=== PATIENT | female | born 1940 | race American Indian/Alaskan Native ===

== ENCOUNTER 2017-09-16 20:39 | Inpatient (IN) | payer MEDICARE ==
--- NOTE | 2017-09-16 20:46 | C.PDOC ---
History Of Present Illness Patient is a 76 y/o female brought in by ambulance for left-sided weakness. Patient was last known at baseline normal around last night. As per patient, she went to the bathroom earlier this morning and fell, and thats how she was found. On arrival, patient has left hemiplegia and eyes are deviated to the right. History taken from patient. Time Seen by Provider: 09/16/17 20:44 Chief Complaint (Nursing): Weakness/Neurological Deficit History Per: Patient History/Exam Limitations: no limitations Onset/Duration Of Symptoms: Hrs Current Symptoms Are (Timing): Still Present Severity: Moderate Pain Scale Rating Of: 0 Additional History Per: EMS Past Medical History Reviewed: Historical Data, Nursing Documentation, Vital Signs Vital Signs: Last Vital Signs Temp 99.6 F 09/16/17 20:47 Pulse 95 H 09/16/17 21:31 Resp 16 09/16/17 21:31 BP 212/121 H 09/16/17 21:31 Pulse Ox 100 09/16/17 21:40 - Medical History PMH: Arthritis, Dementia, HTN, TIA Surgical History: No Surg Hx Family History: States: No Known Family Hx Review Of Systems Eyes: Positive for: Other (eyes deviated) Neurological: Positive for: Weakness (left-sided hemiplegia) Physical Exam - Physical Exam Skin: Warm, Dry Head: Normacephalic Eye(s): bilateral: Other (Eyes deviated to the right) Oral Mucosa: Moist Neck: Trachea Midline, No Step Off Deformity, Supple Chest: Symmetrical Cardiovascular: Rhythm Regular Respiratory: No Rales, No Rhonchi, No Wheezing Gastrointestinal/Abdominal: Bowel Sounds (normal), Soft, No Tenderness, No Distention Extremity: Bilateral: Atraumatic, No Pedal Edema, Normal Color And Temperature Neurological/Psych: Oriented x3, Normal Speech, Other (left hemiplegia -- see NIHSS) ED Course And Treatment - Laboratory Results Result Diagrams: 09/16/17 20:47 09/16/17 20:47 ECG: Interpreted By Me, Viewed By Me ECG Rhythm: Sinus Rhythm (99), Nonspecific Changes O2 Sat by Pulse Oximetry: 100 Pulse Ox Interpretation: Normal - Radiology CXR: Interpreted by Me, Viewed By Me - CT Scan/US CT Head Other Rad Studies (CT/US): Read By Radiologist, Radiology Report Reviewed CT/US Interpretation: FINDINGS: Brain: Mild to moderate brain volume loss. Periventricular and subcortical hypodensities are. nonspecific and could reflect chronic microvascular ischemic changes. No hemorrhage. Ventricles: 3 cm right basal ganglia hyperdense acute intraparenchymal hemorrhage with extension. into the right lateral ventricle and occipital horn with minimal hemorrhage in the left occipital horn. No. hydrocephalus. 6 mm of leftward midline shift. Bones/joints: Unremarkable. No acute fracture. Soft tissues: Left frontal parietal soft tissue hematoma. Vasculature: Calcific atherosclerosis of the bilateral carotid siphon. Sinuses: Unremarkable as visualized. No acute sinusitis. Mastoid air cells: Unremarkable as visualized. No mastoid effusion. Orbits: Bilateral proptosis. IMPRESSION: 3 cm right basal ganglia hyperdense acute intraparenchymal hemorrhage with extension into the. right lateral ventricle and occipital horn with minimal hemorrhage in the left occipital horn. No. hydrocephalus. 6 mm of leftward midline shift. Thank you for allowing us to participate in the care of your patient. Dictated and Authenticated by: Laron Calderon MD. 09/16/2017 9:12 PM Eastern Time ([place] & [place]) Progress Note: 8:40pm Code stroke called. 8:[address] blair. awaiting ct scan. 9:00pm Received call from CT, + intracranial bleed. 9:18 placed call to nerurosurgery. Pt "stable" starting carmine [place]. 9:[address] hoover, neurosurgery,- not a surgical candidate. will repeat a ct early am and re-evaluate. 9:[address] armstrong - icu- will come and see the pt in the ed - Physician Consult Information Time Consulting Physician Contacted: 08:47 Physician Contacted: Joseph Blair Outcome Of Conversation: awaiting CT scan results and will examine the pt at bedside Critical Care Time - Critical Care Note Total Time (in mins): 40 Documented critical care: time excludes all time spent performing seperately billable procedures. NIHSS Stroke Scale - Date/Time Evaluation Performed Date Performed: 09/16/17 Time Performed: 20:40 When Was NIHSS Performed: Code Stroke - How Severe is the Stroke Level of Consciousness: 0=Alert LOC to Questions: 0=Both comments correct LOC to commands: 0=Obeys both correctly Best Gaze: 1=Partial gaze palsy Visual: 0=No visual loss Facial: 1=Minor asymmetry Motor Arm - Left: 3=No effort against gravity (falls immediately) Motor Arm - Right: 0=No drift Motor Leg - Left: 3=No effort against gravity (falls immediately) Motor Leg - Right: 0=No drift Limb Ataxia: 0=Absent Sensory: 0=Normal Best Language: 0=No aphasia Dysarthia: 1=Mild to moderate slurring Extinction & Inattention (Neglect): 0=Normal, no object Score: [address] Cheyanne Alberts Comment: accepted the pt on her service and took over the care at 9:40 PM Doctor Will See Patient In The: ED Counseled Patient/Family Regarding: Studies Performed, Diagnosis - Disposition Disposition: HOSPITALIZED Disposition Time: 20:45 Condition: CRITICAL Forms: [facility] (Danish) - Clinical Impression Clinical Impression: Intracerebral bleed, Hypertensive crisis, NSTEMI (non-ST elevated myocardial infarction) - Scribe Statement The provider has reviewed the documentation as recorded by the Scribe (Lizzie Reynaga) Provider Attestation: All medical record entries made by the Scribe were at my direction and personally dictated by me. I have reviewed the chart and agree that the record accurately reflects my personal performance of the history, physical exam, medical decision making, and the department course for this patient. I have also personally directed, reviewed, and agree with the discharge instructions and disposition. Decision To Admit - Pt Status Changed To: Hospital Disposition Of: Inpatient - Admit Certification Admit to Inpatient:: After my assessment, the patient will require hospitalization for at least two midnights. This is because of the severity of symptoms shown, intensity of services needed, and/or the medical risk in this patient being treated as an outpatient. - InPatient: Physician Admission Certification: I certify that this patient requires 2 or more midnights of care for the following reason:: After my assessment, the patient will require hospitalization for at least two midnights. This is because of the severity of symptoms shown, intensity of services needed, and/or the medical risk in this patient being treated as an outpatient. - . Bed Request Type: ICU Admitting Physician: Cheyanne Alberts Patient Diagnosis: Intracerebral bleed, Hypertensive crisis, NSTEMI (non-ST elevated myocardial infarction)
[2017-09-16 20:51] LABS: BASO # 0.1 K/uL (0.0-0.2); BASO % 0.8 % (0.0-2.0); HEMOGLOBIN 16.6 g/dL (11.0-16.0); LYMPH # 0.7 K/uL (1.0-4.3); LYMPH % 4.2 % (20.0-40.0); MEAN CELL VOLUME 82.9 fL (81.0-99.0); MEAN CORPUSCULAR HEMOGLOBIN 27.1 pg (27.0-31.0); MEAN CORPUSCULAR HGB CONC 32.7 g/dL (33.0-37.0); MONO # 0.5 K/uL (0.0-0.8); MONO % 3.3 % (0.0-10.0); NEUT # 14.6 K/uL (1.8-7.0); NEUT % 91.7 % (50.0-75.0); NRBC % 0.3 % (0.0-2.0); PLATELET COUNT 208 K/uL (130-400); RBC 6.11 Mil/uL (3.80-5.20); RED CELL DISTRIBUTION WIDTH 14.4 % (11.5-14.5); WHITE BLOOD COUNT 15.9 K/uL (4.8-10.8)
[2017-09-16] MEDS ORDERED: Iodixanol 320 MG/ML 100 ML BOTTLE IV ONE (20:52)
[2017-09-16 21:05] LABS: ALB/GLOB RATIO 1.1 (1.0-2.1); ALBUMIN 4.5 g/dL (3.5-5.0); CALCIUM 9.7 mg/dl (8.6-10.4)
[2017-09-16 21:13] LABS: PROTHROMBIN TIME 10.8 SECONDS (9.7-12.2)
[2017-09-16 21:20] LABS: TROPONIN I 0.141 ng/mL (0.00-0.120)
--- NOTE | 2017-09-16 21:24 | CT ---
EXAM: CT Cervical Spine Without Intravenous Contrast CLINICAL HISTORY: 76 years old, female; Injury or trauma; Fall; Initial encounter; Bleeding/hemorrhage TECHNIQUE: Axial computed tomography images of the cervical spine without intravenous contrast. All CT scans at this facility use one or more dose reduction techniques, viz.: automated exposure control; ma/kV adjustment per patient size (including targeted exams where dose is matched to indication; i.e. head); or iterative reconstruction technique. Coronal and sagittal reformatted images were created and reviewed. COMPARISON: No relevant prior studies available. FINDINGS: Vertebrae: No acute fracture. Straightening of cervical spine. Degenerative anterolisthesis of mid cervical spine. Facet osteoarthrosis. Discs/spinal canal/neural foramina: Fusion across C5-C6 level. Moderate to severe degenerative disc disease within mid and lower cervical spine. Mild indentation thecal sac/cord mid cervical spine. Mild indentation thecal sac/cord lower cervical spine. Mild neuroforaminal narrowing with mid and lower cervical spine. Other bones/joints: Probable bone island within maxilla. Soft tissues: Unremarkable. Vasculature: Atherosclerotic disease of aorta and branches. Sinuses: Scattered minimal to mild mucosal thickening. Dental: Periapical lucency compatible with dental disease. Lung apices: Unremarkable. IMPRESSION: 1. No fracture. 2. Incidental/non-acute findings are described above.
[2017-09-16] MEDS: niCARdipine IV 25 MG in Sodium Chloride 0.9% 240 ML IV SCH (21:54)
[2017-09-16 22:15] LABS: BANDS 1 % (0-2); LYMPHOCYTE 6 % (20-40); MONOCYTE 5 % (0-10); NEUTROPHIL 88 % (50-75); PLATELET ESTIMATE NORMAL (NORMAL); TOTAL CELLS COUNTED 100
--- NOTE | 2017-09-17 00:17 | CP.PCM.CON ---
History of Present Illness - History of Present Illness History of Present Illness: 76 F with h/o tia in past, medication details not available, was last seen fine last night, but today evening found in the bathroom floor, unable to move, as per the patient had fallen down last this morning, unknown time. In ER she was found to have right gaze, both legs wk, but moving spontaneous, flaccid left arm , normal movement on right arm, weak left face, and some slurring of speech. Patient at time of interview when asked age mentioned 39, and unable to say the name of the month. Denied any pain, was not in resp distress. HTN 240/[address] showed right basal ganglia bleeding, with surrounding edema, right posterior horn lateral ventricle bleeding, she was started on nicardipine drip. PMH as above Allergies NKDA Surgical history not known Family history not contributory Social lives in her apartment in a multifamily home, walks wit walker, 1-2 cig for last 1 yr and more prior, no h/o alcohol Meds details not available yet Review of Systems - Review of Systems All systems: reviewed and no additional remarkable complaints except (HPI) Past Patient History - Past Social History Smoking Status: Light Smoker < 10 Cigarettes Daily Chewing Tobacco Use: No Alcohol: None Drugs: Denies Home Situation {Lives}: Alone Domestic Violence: Negative - CARDIAC Hx Hypertension: Yes - PULMONARY Hx Respiratory Disorders: No - NEUROLOGICAL Hx Dementia: Yes Hx Transient Ischemic Attacks (TIA): Yes - HEENT Hx HEENT Problems: No - RENAL Hx Chronic Kidney Disease: No - ENDOCRINE/METABOLIC Hx Endocrine Disorders: No - HEMATOLOGICAL/ONCOLOGICAL Hx Blood Disorders: No - INTEGUMENTARY Hx Dermatological Problems: No - MUSCULOSKELETAL/RHEUMATOLOGICAL Hx Arthritis: Yes - GASTROINTESTINAL Hx Gastrointestinal Disorders: No - GENITOURINARY/GYNECOLOGICAL Hx Genitourinary Disorders: No - PSYCHIATRIC Hx Psychophysiologic Disorder: No Hx Substance Use: No - SURGICAL HISTORY Hx Surgeries: No - ANESTHESIA Hx Anesthesia: No Meds Allergies/Adverse Reactions: Allergies Allergy/AdvReac Type Severity Reaction Status Date / Time No Known Allergies Allergy Verified 09/16/17 20:44 - Medications Medications: Current Medications Nicardipine HCl 25 mg/ Sodium (Chloride) 250 mls @ 50 mls/hr IV .Q5H CORNEL; 5 MG/ HR PRN Reason: Protocol Last Admin: 09/16/17 21:54 Dose: 50 mls/hr Physical Exam - Additional Findings Additional findings: * HEENT [place], right lateral gaze, unable to move eyes to left past mid eye, bulging of right buccinator, flatter left NLF * Neck supple * CVS regular, no gallop or rub * PA soft * Chest Clear b/l * Ext no edema * Skin normal turgor * [employer] Right gaze, HEENT as above, left arm 1/5, right arm 4/5, b/l legs 3/5, planter up on left foot, sensation present all 4 limbs, coordination unable to check, slurring of speech, lethargy noticed, language likely affected, gag present. Results - Vital Signs Recent Vital Signs: Last Vital Signs Temp 99.6 F 09/16/17 20:47 Pulse 92 H 09/16/17 22:55 Resp 18 09/16/17 22:55 BP 178/112 H 09/16/17 22:55 Pulse Ox 100 09/16/17 22:57 - Labs Result Diagrams: 09/16/17 20:47 09/16/17 20:47 Labs: Laboratory Results - last 24 hr 09/16/17 09/16/17 09/16/17 20:42 20:47 20:47 WBC 15.9 H D RBC 6.11 H Hgb 16.6 H D Hct 50.7 H MCV 82.9 MCH 27.1 MCHC 32.7 L RDW 14.4 Plt Count 208 MPV 8.0 Neut % (Auto) 91.7 H Lymph % (Auto) 4.2 L [place] % (Auto) 3.3 Eos % (Auto) 0.0 Baso % (Auto) 0.8 Neut # (Auto) 14.6 H Lymph # (Auto) 0.7 L [place] # (Auto) 0.5 Eos # (Auto) 0.0 Baso # (Auto) 0.1 Neutrophils % (Manual) 88 H Band Neutrophils % 1 Lymphocytes % (Manual) 6 L Monocytes % (Manual) 5 Platelet Estimate Normal PT 10.8 INR 1.0 APTT 25 Sodium Potassium Chloride Carbon Dioxide Anion Gap BUN Creatinine Est GFR ( Amer) Est GFR (Non-Af Amer) POC Glucose (mg/dL) 125 H Random Glucose Hemoglobin A1c Calcium Total Bilirubin AST ALT Alkaline Phosphatase Troponin I Total Protein Albumin Globulin Albumin/Globulin Ratio Triglycerides Cholesterol LDL Cholesterol Direct HDL Cholesterol Blood Type Antibody Screen 09/16/17 09/16/17 09/16/17 20:47 20:47 20:47 WBC RBC Hgb Hct MCV MCH MCHC RDW Plt Count MPV Neut % (Auto) Lymph % (Auto) [place] % (Auto) Eos % (Auto) Baso % (Auto) Neut # (Auto) Lymph # (Auto) [place] # (Auto) Eos # (Auto) Baso # (Auto) Neutrophils % (Manual) Band Neutrophils % Lymphocytes % (Manual) Monocytes % (Manual) Platelet Estimate PT INR APTT Sodium 143 Potassium 3.9 Chloride 101 Carbon Dioxide 26 Anion Gap 19 BUN 27 H Creatinine 1.2 Est GFR ( Amer) 53 Est GFR (Non-Af Amer) 44 POC Glucose (mg/dL) Random Glucose 154 H Hemoglobin A1c 5.3 Calcium 9.7 Total Bilirubin 2.6 H AST 58 H ALT 20 Alkaline Phosphatase 118 Troponin I 0.1410 H* Total Protein 8.7 H Albumin 4.5 Globulin 4.2 H Albumin/Globulin Ratio 1.1 Triglycerides 88 Cholesterol 243 H LDL Cholesterol Direct 117 HDL Cholesterol 99 H Blood Type O POSITIVE Antibody Screen Negative Assessment & Plan - Assessment and Plan (Free Text) Assessment: * Right basal ganglia bleeding with surrounding edema, right lateral ventricle bleeding * HTN secondary to above * Tobacco abuse * High hemoglobin could be form being bit hemoconcentration, will have to check for polycythemia * Unknown meds at this point of time, but normal plt number and PT/PTT * Full code * Elevated trop likely due to above Plan: * Nicardipine drip, SBP range 140-160 * GI prophylaxis * DVT prophylaxis with SCD * Keppra * Seizure, aspiration precaution * Echo, carotid doppler, tibc, iron, erythropoitin level * Counselled about smoking cessation * PT/OT/Swallow eval * Repeat CT * Avoid hypotonic fluid, * Maintain euglycemia, euvolemia, spo2> 90% * See order for detail.
[2017-09-17] MEDS: levETIRAcetam 500 MG in Sodium Chloride 0.9% 100 ML IVPB SCH ×3 (00:30→23:00)
[2017-09-17] MEDS: Sodium Chloride 0.9% 1,000 ML IV SCH ×3 (00:30→20:00)
--- NOTE | 2017-09-17 00:31 | CP.PCM.HP ---
<TristanYasmine SJuan Francisco - Last Filed: 09/17/17 00:28> History of Present Illness - History of Present Illness History of Present Illness: HPI: 76 year old female with past medical history of dementia, HTN and glaucoma. Per nurse patient was found by son today and patient was not alert and oriented. with left sided weakness. Son then called the ambulance. Patient lives alone but in the same building as the son. ROS unattainable s/p hemorrhagic stroke. PMD: Dr. Alberts Past Medical History (per nurse): Dementia, HTN, glaucoma Surgical History: unknown Medications: unknown will have to follow up with PMD/pharmacy to confirm Allergies: NKDA Social History: Lives alone but lives in the same building as son. Present on Admission - Present on Admission Any Indicators Present on Admission: No Review of Systems - Review of Systems Systems not reviewed;Unavailable: Dementia Past Patient History - Past Social History Smoking Status: Light Smoker < 10 Cigarettes Daily Chewing Tobacco Use: No Alcohol: None Drugs: Denies Home Situation {Lives}: Alone Domestic Violence: Negative - CARDIAC Hx Hypertension: Yes - PULMONARY Hx Respiratory Disorders: No - NEUROLOGICAL Hx Dementia: Yes Hx Transient Ischemic Attacks (TIA): Yes - HEENT Hx HEENT Problems: No - RENAL Hx Chronic Kidney Disease: No - ENDOCRINE/METABOLIC Hx Endocrine Disorders: No - HEMATOLOGICAL/ONCOLOGICAL Hx Blood Disorders: No - INTEGUMENTARY Hx Dermatological Problems: No - MUSCULOSKELETAL/RHEUMATOLOGICAL Hx Arthritis: Yes - GASTROINTESTINAL Hx Gastrointestinal Disorders: No - GENITOURINARY/GYNECOLOGICAL Hx Genitourinary Disorders: No - PSYCHIATRIC Hx Psychophysiologic Disorder: No Hx Substance Use: No - SURGICAL HISTORY Hx Surgeries: No - ANESTHESIA Hx Anesthesia: No Meds Allergies/Adverse Reactions: Allergies Allergy/AdvReac Type Severity Reaction Status Date / Time No Known Allergies Allergy Verified 09/16/17 20:44 Physical Exam - Head Exam Head Exam: ATRAUMATIC, NORMAL INSPECTION - Eye Exam Pupil Exam: Miosis Additional comments: Eyes deviated to the right - ENT Exam ENT Exam: Mucous Membranes Moist - Respiratory Exam Respiratory Exam: NORMAL BREATHING PATTERN - Cardiovascular Exam Cardiovascular Exam: REGULAR RHYTHM, +S1, +S2 - GI/Abdominal Exam GI & Abdominal Exam: Normal Bowel Sounds, Soft. absent: Tenderness - Extremities Exam Extremities exam: Negative for: pedal edema, tenderness Additional comments: left hemiplegia - Expanded Neurological Exam Expanded Coma Scale Eye Opening: To Voice - Skin Additional comments: Right thigh skin tag Results - Vital Signs Recent Vital Signs: Last Vital Signs Temp 99.6 F 09/16/17 20:47 Pulse 92 H 09/16/17 22:55 Resp 18 09/16/17 22:55 BP 178/112 H 09/16/17 22:55 Pulse Ox 100 09/16/17 22:57 - Labs Result Diagrams: 09/16/17 20:47 09/16/17 20:47 Labs: Laboratory Results - last 24 hr 09/16/17 09/16/17 09/16/17 20:42 20:47 20:47 WBC 15.9 H D RBC 6.11 H Hgb 16.6 H D Hct 50.7 H MCV 82.9 MCH 27.1 MCHC 32.7 L RDW 14.4 Plt Count 208 MPV 8.0 Neut % (Auto) 91.7 H Lymph % (Auto) 4.2 L [place] % (Auto) 3.3 Eos % (Auto) 0.0 Baso % (Auto) 0.8 Neut # (Auto) 14.6 H Lymph # (Auto) 0.7 L [place] # (Auto) 0.5 Eos # (Auto) 0.0 Baso # (Auto) 0.1 Neutrophils % (Manual) 88 H Band Neutrophils % 1 Lymphocytes % (Manual) 6 L Monocytes % (Manual) 5 Platelet Estimate Normal PT 10.8 INR 1.0 APTT 25 Sodium Potassium Chloride Carbon Dioxide Anion Gap BUN Creatinine Est GFR ( Amer) Est GFR (Non-Af Amer) POC Glucose (mg/dL) 125 H Random Glucose Hemoglobin A1c Calcium Total Bilirubin AST ALT Alkaline Phosphatase Troponin I Total Protein Albumin Globulin Albumin/Globulin Ratio Triglycerides Cholesterol LDL Cholesterol Direct HDL Cholesterol Blood Type Antibody Screen 09/16/17 09/16/17 09/16/17 20:47 20:47 20:47 WBC RBC Hgb Hct MCV MCH MCHC RDW Plt Count MPV Neut % (Auto) Lymph % (Auto) [place] % (Auto) Eos % (Auto) Baso % (Auto) Neut # (Auto) Lymph # (Auto) [place] # (Auto) Eos # (Auto) Baso # (Auto) Neutrophils % (Manual) Band Neutrophils % Lymphocytes % (Manual) Monocytes % (Manual) Platelet Estimate PT INR APTT Sodium 143 Potassium 3.9 Chloride 101 Carbon Dioxide 26 Anion Gap 19 BUN 27 H Creatinine 1.2 Est GFR ( Amer) 53 Est GFR (Non-Af Amer) 44 POC Glucose (mg/dL) Random Glucose 154 H Hemoglobin A1c 5.3 Calcium 9.7 Total Bilirubin 2.6 H AST 58 H ALT 20 Alkaline Phosphatase 118 Troponin I 0.1410 H* Total Protein 8.7 H Albumin 4.5 Globulin 4.2 H Albumin/Globulin Ratio 1.1 Triglycerides 88 Cholesterol 243 H LDL Cholesterol Direct 117 HDL Cholesterol 99 H Blood Type O POSITIVE Antibody Screen Negative Assessment & Plan - Assessment and Plan (Free Text) Assessment: 1.) Hemorrhagic stroke - Patient admitted to ICU - Neuro Consult: Dr. Blair - NIHSS: 9 - f/u official read of Head CT - f/u carotic doppler - Cervical Spine CT: No fracture. - Keppra 500mg IV q12h - N/S @100cc/hr 2.) NSTEMI - f/u ECHO - Trop 0.1410 3.) HTN - Nicardipine drip, SBP range 140-160 4.) Elevated hemoglobin - H/H: 16.6/50.7 - f/u Iron studies 5.) Prophylaxis - Swallow Eval - PT/OT - Protonix IV daily - SCDs <Ozzie Finn - Last Filed: 09/17/17 06:25> Results - Vital Signs Recent Vital Signs: Last Vital Signs Temp 97.8 F 09/17/17 04:00 Pulse 94 H 09/17/17 05:01 Resp 21 09/17/17 05:01 BP 129/76 09/17/17 05:01 Pulse Ox 99 09/17/17 05:01 - Labs Result Diagrams: 09/16/17 20:47 09/16/17 20:47 Labs: Laboratory Results - last 24 hr 09/16/17 09/16/17 09/16/17 20:42 20:47 20:47 WBC 15.9 H D RBC 6.11 H Hgb 16.6 H D Hct 50.7 H MCV 82.9 MCH 27.1 MCHC 32.7 L RDW 14.4 Plt Count 208 MPV 8.0 Neut % (Auto) 91.7 H Lymph % (Auto) 4.2 L [place] % (Auto) 3.3 Eos % (Auto) 0.0 Baso % (Auto) 0.8 Neut # (Auto) 14.6 H Lymph # (Auto) 0.7 L [place] # (Auto) 0.5 Eos # (Auto) 0.0 Baso # (Auto) 0.1 Neutrophils % (Manual) 88 H Band Neutrophils % 1 Lymphocytes % (Manual) 6 L Monocytes % (Manual) 5 Platelet Estimate Normal PT 10.8 INR 1.0 APTT 25 Sodium Potassium Chloride Carbon Dioxide Anion Gap BUN Creatinine Est GFR ( Amer) Est GFR (Non-Af Amer) POC Glucose (mg/dL) 125 H Random Glucose Hemoglobin A1c Calcium Total Bilirubin AST ALT Alkaline Phosphatase Troponin I Total Protein Albumin Globulin Albumin/Globulin Ratio Triglycerides Cholesterol LDL Cholesterol Direct HDL Cholesterol Blood Type Antibody Screen 09/16/17 09/16/17 09/16/17 20:47 20:47 20:47 WBC RBC Hgb Hct MCV MCH MCHC RDW Plt Count MPV Neut % (Auto) Lymph % (Auto) [place] % (Auto) Eos % (Auto) Baso % (Auto) Neut # (Auto) Lymph # (Auto) [place] # (Auto) Eos # (Auto) Baso # (Auto) Neutrophils % (Manual) Band Neutrophils % Lymphocytes % (Manual) Monocytes % (Manual) Platelet Estimate PT INR APTT Sodium 143 Potassium 3.9 Chloride 101 Carbon Dioxide 26 Anion Gap 19 BUN 27 H Creatinine 1.2 Est GFR ( Amer) 53 Est GFR (Non-Af Amer) 44 POC Glucose (mg/dL) Random Glucose 154 H Hemoglobin A1c 5.3 Calcium 9.7 Total Bilirubin 2.6 H AST 58 H ALT 20 Alkaline Phosphatase 118 Troponin I 0.1410 H* Total Protein 8.7 H Albumin 4.5 Globulin 4.2 H Albumin/Globulin Ratio 1.1 Triglycerides 88 Cholesterol 243 H LDL Cholesterol Direct 117 HDL Cholesterol 99 H Blood Type O POSITIVE Antibody Screen Negative 09/17/17 01:10 WBC RBC Hgb Hct MCV MCH MCHC RDW Plt Count MPV Neut % (Auto) Lymph % (Auto) [place] % (Auto) Eos % (Auto) Baso % (Auto) Neut # (Auto) Lymph # (Auto) [place] # (Auto) Eos # (Auto) Baso # (Auto) Neutrophils % (Manual) Band Neutrophils % Lymphocytes % (Manual) Monocytes % (Manual) Platelet Estimate PT INR APTT Sodium Potassium Chloride Carbon Dioxide Anion Gap BUN Creatinine Est GFR ( Amer) Est GFR (Non-Af Amer) POC Glucose (mg/dL) 115 H Random Glucose Hemoglobin A1c Calcium Total Bilirubin AST ALT Alkaline Phosphatase Troponin I Total Protein Albumin Globulin Albumin/Globulin Ratio Triglycerides Cholesterol LDL Cholesterol Direct HDL Cholesterol Blood Type Antibody Screen Assessment & Plan - Date & Time Date: 09/17/17 (I have seen and examined the patient. I agree with the findings and plan of care as documented by Dr. Hudson. Patient with hemorrhagic stroke and NSTEMI. Admit to ICU. Consult to neuro and neurosurg. Further management as per ICU. Monitor for acute changes.) Time: 06:25 Attending/Attestation - Attestation I have personally seen and examined this patient.: Yes I have fully participated in the care of the patient.: Yes I have reviewed all pertinent clinical information: Yes
[2017-09-17] MEDS: niCARdipine IV 25 MG in Sodium Chloride 0.9% 240 ML IV SCH ×4 (02:30→22:39)
[2017-09-17 06:30] LABS: BASO # 0.1 K/uL (0.0-0.2); BASO % 1.2 % (0.0-2.0); HEMOGLOBIN 14.6 g/dL (11.0-16.0); LYMPH # 1.4 K/uL (1.0-4.3); LYMPH % 12.6 % (20.0-40.0); MEAN CORPUSCULAR HEMOGLOBIN 27.1 pg (27.0-31.0); MEAN CORPUSCULAR HGB CONC 32.7 g/dL (33.0-37.0); MEAN PLATELET VOLUME 8.4 fL (7.2-11.7); MONO # 0.8 K/uL (0.0-0.8); MONO % 6.8 % (0.0-10.0); NEUT # 8.7 K/uL (1.8-7.0); NEUT % 79.4 % (50.0-75.0); NRBC % 0.1 % (0.0-2.0); RBC 5.38 Mil/uL (3.80-5.20); RED CELL DISTRIBUTION WIDTH 14.5 % (11.5-14.5)
[2017-09-17 06:44] LABS: IRON 41 ug/dL (37-170)
[2017-09-17 06:49] LABS: ALB/GLOB RATIO 1.1 (1.0-2.1); ALBUMIN 3.6 g/dL (3.5-5.0); CALCIUM 9.1 mg/dl (8.6-10.4)
[2017-09-17 06:54] LABS: % IRON SATURATION 20 (20-55); TOTAL IRON BINDING CAPACITY 203 ug/dL (250-450)
--- NOTE | 2017-09-17 07:07 | RAD ---
HISTORY: Code Stroke COMPARISON: Chest radiograph 12/08/2011. FINDINGS: LUNGS: No active pulmonary disease. Trace fibrosis again seen at the mid left lung zone laterally. PLEURA: No significant pleural effusion identified, no pneumothorax apparent. CARDIOVASCULAR: Chronic size is technically magnified though cardiomegaly is not completely excluded in this frontal radiograph. No pulmonary vascular derangement identified. OSSEOUS STRUCTURES: No significant abnormalities. VISUALIZED UPPER ABDOMEN: Normal. OTHER FINDINGS: None. IMPRESSION: No acute infiltrate or pleural effusion bilaterally. Likely stable cardiac silhouette.
[2017-09-17 07:51] LABS: TROPONIN I 0.155 ng/mL (0.00-0.120)
--- NOTE | 2017-09-17 08:30 | CT ---
PROCEDURE: CT HEAD WITHOUT CONTRAST. HISTORY: Code Stroke COMPARISON: None available. TECHNIQUE: Axial computed tomography images were obtained through the head/brain without intravenous contrast. Radiation dose: Total exam DLP = 835 mGy-cm. This CT exam was performed using one or more of the following dose reduction techniques: Automated exposure control, adjustment of the mA and/or kV according to patient size, and/or use of iterative reconstruction technique. FINDINGS: HEMORRHAGE: 3 centimeter right basal ganglia hyperdense acute intraparenchymal hemorrhage with extension into the right lateral ventricle and occipital horn with minimal hemorrhage in the left occipital horn. 6 millimeters of leftward midline shift. BRAIN: Mild to moderate brain volume loss. Periventricular and subcortical hypodensities are nonspecific and could reflect chronic microvascular ischemic changes. VENTRICLES: As above. CALVARIUM: Unremarkable. PARANASAL SINUSES: Unremarkable as visualized. No significant inflammatory changes. MASTOID AIR CELLS: Unremarkable as visualized. No inflammatory changes. OTHER FINDINGS: Left frontal parietal soft tissue hematoma. Calcific atherosclerosis of the bilateral carotid siphon. Bilateral orbital proptosis. IMPRESSION: 3 centimeter right basal ganglia hyperdense acute intraparenchymal hemorrhage with extension into the right lateral ventricle and occipital horn with minimal hemorrhage in the left occipital horn. 6 millimeters of leftward midline shift. These findings were preliminarily reported at 9:12 p.m. on 09/16/[address] Laron Calderon from [facility].
--- NOTE | 2017-09-17 09:51 | CP.PCM.CON ---
History of Present Illness - History of Present Illness History of Present Illness: Note for Neurology consult Dr. Blair: CC: CVA HPI: Patient is a 76 year old female with a history of HTN, glucoma, and demntia was found with left sided weakness and taken to the ED where she became aphasic. She currently only responds to verbal commands but only moves her right side. She is non verbal now and when seen in room with nurse present she is sleeping in room. Patient seen in room with attending. Patient is more responsive able to respond to simple commands and also able to move her left leg a little bit as well. She can squeeze and raise her right arm. 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 She was able to answer questions before coming to the hospital but became aphasic afterwards. Review of Systems - Review of Systems Systems not reviewed;Unavailable: Acuity of Condition Past Patient History - Past Medical History & Family History Past Medical History?: Yes - Past Social History Smoking Status: Light Smoker < 10 Cigarettes Daily Chewing Tobacco Use: No Alcohol: None Drugs: Denies Home Situation {Lives}: Alone Domestic Violence: Negative - CARDIAC Hx Hypertension: Yes - PULMONARY Hx Respiratory Disorders: No - NEUROLOGICAL Hx Dementia: Yes Hx Transient Ischemic Attacks (TIA): Yes - HEENT Hx HEENT Problems: No - RENAL Hx Chronic Kidney Disease: No - ENDOCRINE/METABOLIC Hx Endocrine Disorders: No - HEMATOLOGICAL/ONCOLOGICAL Hx Blood Disorders: No - INTEGUMENTARY Hx Dermatological Problems: No - MUSCULOSKELETAL/RHEUMATOLOGICAL Hx Arthritis: Yes - GASTROINTESTINAL Hx Gastrointestinal Disorders: No - GENITOURINARY/GYNECOLOGICAL Hx Genitourinary Disorders: No - PSYCHIATRIC Hx Psychophysiologic Disorder: No Hx Substance Use: No - SURGICAL HISTORY Hx Surgeries: No - ANESTHESIA Hx Anesthesia: No Meds Allergies/Adverse Reactions: Allergies Allergy/AdvReac Type Severity Reaction Status Date / Time No Known Allergies Allergy Verified 09/16/17 20:44 - Medications Medications: Current Medications Nicardipine HCl 25 mg/ Sodium (Chloride) 250 mls @ 50 mls/hr IV .Q5H [facility]; 5 MG/ HR PRN Reason: Protocol Last Titration: 09/17/17 06:40 Dose: 1.5 mg/hr, 15 mls/hr Levetiracetam 500 mg/ Sodium (Chloride) 105 mls @ 420 mls/hr IVPB Q12H [facility] Last Admin: 09/17/17 00:30 Dose: 420 mls/hr Sodium Chloride (Sodium Chloride 0.9%) 1,000 mls @ 100 mls/hr IV .Q10H [facility] Last Admin: 09/17/17 00:30 Dose: 100 mls/hr Pantoprazole Sodium (Protonix Inj) 40 mg IVP DAILY [facility] Physical Exam - Constitutional Appears: Other - Eye Exam Eye Exam: absent: EOMI Pupil Exam: Miosis Additional comments: but reactive - Respiratory Exam Respiratory Exam: Clear to Auscultation Bilateral - Cardiovascular Exam Cardiovascular Exam: Tachycardia, REGULAR RHYTHM, +S1, +S2. absent: Systolic Murmur - GI/Abdominal Exam GI & Abdominal Exam: Soft - Extremities Exam Extremities exam: Negative for: pedal edema - Neurological Exam Additional comments: awake, follows simple commands, answer question, but not oriented. - Skin Skin Exam: Intact Results - Vital Signs Recent Vital Signs: Last Vital Signs Temp 98.3 F 09/17/17 08:00 Pulse 108 H 09/17/17 09:01 Resp 18 09/17/17 09:01 BP 155/82 H 09/17/17 09:01 Pulse Ox 99 09/17/17 09:01 - Labs Result Diagrams: 09/17/17 06:24 09/17/17 06:24 Labs: Laboratory Results - last 24 hr 09/16/17 09/16/17 09/16/17 20:42 20:47 20:47 WBC 15.9 H D RBC 6.11 H Hgb 16.6 H D Hct 50.7 H MCV 82.9 MCH 27.1 MCHC 32.7 L RDW 14.4 Plt Count 208 MPV 8.0 Neut % (Auto) 91.7 H Lymph % (Auto) 4.2 L [place] % (Auto) 3.3 Eos % (Auto) 0.0 Baso % (Auto) 0.8 Neut # (Auto) 14.6 H Lymph # (Auto) 0.7 L [place] # (Auto) 0.5 Eos # (Auto) 0.0 Baso # (Auto) 0.1 Neutrophils % (Manual) 88 H Band Neutrophils % 1 Lymphocytes % (Manual) 6 L Monocytes % (Manual) 5 Platelet Estimate Normal PT 10.8 INR 1.0 APTT 25 Sodium Potassium Chloride Carbon Dioxide Anion Gap BUN Creatinine Est GFR ( Amer) Est GFR (Non-Af Amer) POC Glucose (mg/dL) 125 H Random Glucose Hemoglobin A1c Calcium Phosphorus Magnesium Iron TIBC % Saturation Total Bilirubin AST ALT Alkaline Phosphatase Troponin I Total Protein Albumin Globulin Albumin/Globulin Ratio Triglycerides Cholesterol LDL Cholesterol Direct HDL Cholesterol Blood Type Antibody Screen 09/16/17 09/16/17 09/16/17 20:47 20:47 20:47 WBC RBC Hgb Hct MCV MCH MCHC RDW Plt Count MPV Neut % (Auto) Lymph % (Auto) [place] % (Auto) Eos % (Auto) Baso % (Auto) Neut # (Auto) Lymph # (Auto) [place] # (Auto) Eos # (Auto) Baso # (Auto) Neutrophils % (Manual) Band Neutrophils % Lymphocytes % (Manual) Monocytes % (Manual) Platelet Estimate PT INR APTT Sodium 143 Potassium 3.9 Chloride 101 Carbon Dioxide 26 Anion Gap 19 BUN 27 H Creatinine 1.2 Est GFR ( Amer) 53 Est GFR (Non-Af Amer) 44 POC Glucose (mg/dL) Random Glucose 154 H Hemoglobin A1c 5.3 Calcium 9.7 Phosphorus Magnesium Iron TIBC % Saturation Total Bilirubin 2.6 H AST 58 H ALT 20 Alkaline Phosphatase 118 Troponin I 0.1410 H* Total Protein 8.7 H Albumin 4.5 Globulin 4.2 H Albumin/Globulin Ratio 1.1 Triglycerides 88 Cholesterol 243 H LDL Cholesterol Direct 117 HDL Cholesterol 99 H Blood Type O POSITIVE Antibody Screen Negative 09/17/17 09/17/17 09/17/17 01:10 05:45 06:24 WBC RBC Hgb Hct MCV MCH MCHC RDW Plt Count MPV Neut % (Auto) Lymph % (Auto) [place] % (Auto) Eos % (Auto) Baso % (Auto) Neut # (Auto) Lymph # (Auto) [place] # (Auto) Eos # (Auto) Baso # (Auto) Neutrophils % (Manual) Band Neutrophils % Lymphocytes % (Manual) Monocytes % (Manual) Platelet Estimate PT INR APTT Sodium Potassium Chloride Carbon Dioxide Anion Gap BUN Creatinine Est GFR ( Amer) Est GFR (Non-Af Amer) POC Glucose (mg/dL) 115 H 125 H Random Glucose Hemoglobin A1c Calcium Phosphorus Magnesium Iron 41 TIBC 203 L % Saturation 20 Total Bilirubin AST ALT Alkaline Phosphatase Troponin I Total Protein Albumin Globulin Albumin/Globulin Ratio Triglycerides Cholesterol LDL Cholesterol Direct HDL Cholesterol Blood Type Antibody Screen 09/17/17 09/17/17 06:24 06:24 WBC 11.0 H RBC 5.38 H Hgb 14.6 D Hct 44.6 MCV 83.0 MCH 27.1 MCHC 32.7 L RDW 14.5 Plt Count 157 MPV 8.4 Neut % (Auto) 79.4 H Lymph % (Auto) 12.6 L [place] % (Auto) 6.8 Eos % (Auto) 0.0 Baso % (Auto) 1.2 Neut # (Auto) 8.7 H Lymph # (Auto) 1.4 [place] # (Auto) 0.8 Eos # (Auto) 0.0 Baso # (Auto) 0.1 Neutrophils % (Manual) Band Neutrophils % Lymphocytes % (Manual) Monocytes % (Manual) Platelet Estimate PT INR APTT Sodium 142 Potassium 3.7 Chloride 103 Carbon Dioxide 26 Anion Gap 16 BUN 27 H Creatinine 1.2 Est GFR ( Amer) 53 Est GFR (Non-Af Amer) 44 POC Glucose (mg/dL) Random Glucose 114 H Hemoglobin A1c Calcium 9.1 Phosphorus 2.7 Magnesium 1.9 Iron TIBC % Saturation Total Bilirubin 2.0 H AST 40 H D ALT 15 Alkaline Phosphatase 92 Troponin I 0.1550 H* Total Protein 6.9 Albumin 3.6 Globulin 3.3 Albumin/Globulin Ratio 1.1 Triglycerides Cholesterol LDL Cholesterol Direct HDL Cholesterol Blood Type Antibody Screen Assessment & Plan (1) Intracerebral bleed Assessment and Plan: Patient seen and discussed with Dr. Feliciano. Please keep the head of the bed elevated. Recommend start hypertonic IV saline at 50 cc/hr and recheck sodium with serum osmolarity in 6 hours. Will follow up repeat CT scan tomorrow morning. This morning's CT scan showed worsening bleeding with hydrocephalus. Continue IV Nicardpine drip for blood pressure control. Status: Acute (2) NSTEMI (non-ST elevated myocardial infarction) Assessment and Plan: Rise in Troponin most secondary to brain bleed. Status: Acute
--- NOTE | 2017-09-17 10:25 | CT ---
PROCEDURE: CT HEAD WITHOUT CONTRAST. HISTORY: Follow-up intracranial bleeding COMPARISON: Comparison made with prior CT scan brain 09/16/2017 TECHNIQUE: Axial computed tomography images were obtained through the head/brain without intravenous contrast. Radiation dose: Total exam DLP = 1685.99 mGy-cm. This CT exam was performed using one or more of the following dose reduction techniques: Automated exposure control, adjustment of the mA and/or kV according to patient size, and/or use of iterative reconstruction technique. FINDINGS: HEMORRHAGE: Re- demonstrated is a right posteromedial basal ganglia/ thalamic hemorrhage (presumed hypertensive in origin). Hemorrhage has dissected into the ventricular system as with layering blood in the dependent portion of the atria/occipital horns. Small amount of blood is present within the 3rd and right lateral ventricles as well. . The ventricles appear slightly increased in size when compared with the prior study. . . There is a small amount of subarachnoid hemorrhage also seen in the posterior temporal regions bilaterally. There is a small amount of subarachnoid hemorrhage also seen in the posterior buddhist regions bilaterally. BRAIN: Significant diffuse/confluent chronic periventricular white matter ischemic changes are again seen extending peripherally into the deep and subcortical white matter both cerebral hemispheres. VENTRICLES: Of on As above. CALVARIUM: No acute calvarial fracture seen. PARANASAL SINUSES: The paranasal sinuses are appears slightly underpneumatized hypoplastic though otherwise clear. No fluid levels seen to suggest acute sinusitis MASTOID AIR CELLS: Unremarkable as visualized. No inflammatory changes. OTHER FINDINGS: None. IMPRESSION: Re- demonstrated is a right posteromedial basal ganglia/ thalamic hemorrhage (presumed hypertensive in origin) that has dissected into the ventricular system as above. The ventricles appear slightly increased in size. . There is a small amount of subarachnoid hemorrhage also seen in the posterior temporal regions bilaterally. Extensive significant chronic white matter ischemic changes. Moderate volume loss.
[2017-09-17 11:22] LABS: SQUAMOUS EPITHIAL 1 /hpf (0-5); URINE BACTERIA RARE (<OCC); URINE BILIRUBIN NEGATIVE (NEGATIVE); URINE BLOOD 3+ (NEGATIVE); URINE CLARITY Hazy (Clear); URINE COLOR Yellow (YELLOW); URINE GLUCOSE (UA) NORMAL (Normal); URINE PROTEIN 2+ mg/dL (NEGATIVE); URINE UROBILINOGEN NORMAL mg/dL (0.2-1.0)
[2017-09-17 11:27] LABS: URINE LEUKOCYTE ESTERASE 1+ Leu/uL (Negative)
--- NOTE | 2017-09-17 11:34 | CP.PCM.PN ---
Subjective - Date & Time of Evaluation Date of Evaluation: 09/17/17 Time of Evaluation: 11:33 - Subjective Subjective: 76 y o femal right lat basal ganglion hemmorhage with IVH repeat CT shows very mild increase in ventricular siz, but not to point where I would recommend EVD Suggest repeat ct in AM Objective - Vital Signs/Intake and Output Vital Signs (last 24 hours): Temp Pulse Resp BP Pulse Ox 98.3 F 102 H 19 164/82 H 97 09/17/17 08:00 09/17/17 11:00 09/17/17 11:00 09/17/17 11:00 09/17/17 11:00 Intake and Output: 09/17/17 09/17/17 06:59 18:59 Intake Total 1005 735 Output Total 800 145 Balance 205 590 - Medications Medications: Current Medications Nicardipine HCl 25 mg/ Sodium (Chloride) 250 mls @ 50 mls/hr IV .Q5H [facility]; 5 MG/ HR PRN Reason: Protocol Last Admin: 09/17/17 10:39 Dose: 1.5 mg/hr, 15 mls/hr Levetiracetam 500 mg/ Sodium (Chloride) 105 mls @ 420 mls/hr IVPB Q12H [facility] Last Admin: 09/17/17 00:30 Dose: 420 mls/hr Sodium Chloride (Sodium Chloride 0.9%) 1,000 mls @ 100 mls/hr IV .Q10H [facility] Last Admin: 09/17/17 10:38 Dose: 100 mls/hr Pantoprazole Sodium (Protonix Inj) 40 mg IVP DAILY [facility] Last Admin: 09/17/17 10:37 Dose: 40 mg - Labs Labs: 09/17/17 06:24 09/17/17 06:24 PT 10.8 SECONDS (9.7-12.2) 09/16/17 20:47 INR 1.0 09/16/17 20:47 APTT 25 SECONDS (21-34) 09/16/17 20:47
[2017-09-17 11:44] VITALS: BMI 32.9
--- NOTE | 2017-09-17 12:10 | VASCLAB ---
PROCEDURE: HISTORY: Hemorrhagic CVA COMPARISON: None available. TECHNIQUE: Grayscale and duplex Doppler evaluation of the cervical carotid and vertebral arteries were performed. The common carotid, carotid bifurcations and cervical Internal Carotid Artery (ICA) and proximal External Carotid Artery (ECA) were evaluated. The vertebral arteries were evaluated for gross patency and flow direction. Report prepared by POOJA Smith FINDINGS: RIGHT CAROTID ARTERIES: 1. Common Carotid Artery: Minimal homogeneous plaque formation of the right common carotid artery. Maximum Peak Systolic velocity: 68 cm/sec: End-diastolic velocity 11 cm/sec. 2. Carotid Bifurcation: plaque formation. Maximum Peak Systolic velocity: 36 cm/sec: End-diastolic velocity 0 cm/sec. 3. Internal Carotid Artery: Plaque description: Homogeneous 3.1. Proximal Segment: Peak systolic velocity 32 cm/sec: End-diastolic velocity 7 cm/sec - % stenosis 0-15% 3.2. Middle Segment: Peak systolic velocity 35 cm/sec: End-diastolic velocity 8 cm/sec - % stenosis 0-15% 3.3. Distal Segment: Unable to visualize distal portion. 4. External Carotid Artery: No significant focal plaque formation. Peak systolic velocity 73 cm/sec 5. ICA/CCA Ratio: 0.6 LEFT CAROTID ARTERIES: 1. Common Carotid Artery:Minimal homogeneous No significant focal plaque formation of the left common carotid artery. Maximum Peak Systolic velocity: 81 cm/sec: End-diastolic velocity 14 cm/sec. 2. Carotid Bifurcation: plaque formation. Maximum Peak Systolic velocity: 44 cm/sec: End-diastolic velocity 6 cm/sec. 3. Internal Carotid Artery: Plaque description: Homogeneous 3.1. Proximal Segment: Peak systolic velocity 42 cm/sec: End-diastolic velocity 8 cm/sec - % stenosis 0-15% 3.2. Middle Segment: Peak systolic velocity 41 cm/sec: End-diastolic velocity 10 cm/sec - % stenosis 0-15% 3.3. Distal Segment: Unable to visualize distal portion. 4. External Carotid Artery: No significant focal plaque formation. Peak systolic velocity 75 cm/sec 5. ICA/CCA Ratio: 0.6 VERTEBRAL ARTERIES: 1. Right Vertebral Artery: The right vertebral artery flow direction is antegrade. 2. Left Vertebral Artery: The left vertebral artery flow direction is antegrade. OTHER FINDINGS: Technically difficult examination due to patient status. IMPRESSION: RIGHT: Duplex scan does not suggest hemodynamically significant stenosis of the right extracranial carotid arteries. LEFT: Duplex scan does not suggest hemodynamically significant stenosis of the left extracranial carotid arteries.
--- NOTE | 2017-09-17 14:42 | CARD ---
APPROVED REPORT EKG Measurement Heart [id number] <Conclusion> Normal sinus rhythm Inferior infarct, age undetermined Prolonged QT Abnormal ECG
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
--- NOTE | 2017-09-17 16:56 | CP.CCUPN ---
<Josefina Vasquez - Last Filed: 09/17/17 17:02> CCU Subjective - Physician Review Subjective (Free Text): 09/17/17 8:50 Patient seen and examined at bedside. Per nursing no acute events overnight. Patient presented with right basal ganglia bleeding with surrounding edema, right posterior horn lateral ventricle bleeding on CT head. Patient went for repeat CT head this morning. Currently on Cardene drip to maintain BPs 140-160s systolic. Patient opens eyes to verbal stimuli, does not follow commands. She is only her right upper and right lower extremities. CCU Objective - Vital Signs / Intake & Output Vital Signs (Last 4 hours): Vital Signs Pulse Resp BP Pulse Ox 09/17/17 15:09 105 H 20 149/81 100 09/17/17 15:00 109 H 13 98 09/17/17 14:00 109 H 16 166/94 H 98 09/17/17 13:00 107 H 13 164/93 H 97 Intake and Output (Last 8hrs): Intake & Output 09/17/17 09/17/17 09/17/17 06:59 14:59 22:59 Intake Total 1005 1185 115 Output Total 800 240 25 Balance 205 945 90 Weight 80.881 kg 80.558 kg Intake: IV 155 60 Intake, IV Amount 850 1125 115 Left Hand 0 Right Antecubital 150 220 15 Right Antecubital Y-site 700 905 100 Output: Urine 800 240 25 Urethral (Sahu) 800 240 25 Other: Voiding Method Indwelling Catheter - Physical Exam Other physical findings (Free Text): - Constitutional Appears: Chronically Ill - Eye Exam Eye Exam: PERRL - ENT Exam ENT Exam: Mucous Membranes Dry - Respiratory Exam Respiratory Exam: Clear to Ausculation Bilateral, NORMAL BREATHING PATTERN. absent: Rales, Rhonchi, Wheezes - Cardiovascular Exam Cardiovascular Exam: Tachycardia, +S1, +S2 - GI/Abdominal Exam GI & Abdominal Exam: Soft, Normal Bowel Sounds. absent: Distended, Firm, Guarding, Rigid, Tenderness, Rebound - Neurological Exam Neurological Exam: Altered Neuro motor strength exam: Left Upper Extremity: 0, Right Upper Extremity: 5, Left Lower Extremity: 2/1, Right Lower Extremity: 5 - Medications Active Medications: Active Medications Generic Name Dose Route Start Last Admin Trade Name Freq PRN Reason Stop Dose Admin Nicardipine HCl 25 mg/ Sodium 250 mls @ 50 mls/hr 09/16/17 21:30 09/17/17 10: 39 Chloride IV 1.5 mg/hr .Q5H CORNEL 15 mls/hr Protocol Administration 5 MG/HR Levetiracetam 500 mg/ Sodium 105 mls @ 420 mls/hr 09/16/17 23:45 09/17/17 11: 35 Chloride IVPB 420 mls/hr Q12H CORNEL Administration Sodium Chloride 1,000 mls @ 100 mls/hr 09/16/17 23:45 09/17/17 10:38 Sodium Chloride 0.9% IV 100 mls/hr .Q10H CORNEL Administration Pantoprazole Sodium 40 mg 09/17/17 10:00 09/17/17 10:37 Protonix Inj IVP 40 mg DAILY CORNEL Administration - Patient Studies Lab Studies: Lab Studies 09/17/17 09/17/17 09/17/17 Range/Units 11:27 11:08 06:24 WBC (4.8-10.8) K/uL RBC (3.80-5.20) Mil/uL Hgb (11.0-16.0) g/dL Hct (34.0-47.0) % MCV (81.0-99.0) fL MCH (27.0-31.0) pg MCHC (33.0-37.0) g/dL RDW (11.5-14.5) % Plt Count (130-400) K/uL MPV (7.2-11.7) fL Neut % (Auto) (50.0-75.0) % Lymph % (Auto) (20.0-40.0) % [place] % (Auto) (0.0-10.0) % Eos % (Auto) (0.0-4.0) % Baso % (Auto) (0.0-2.0) % Neut # (Auto) (1.8-7.0) K/uL Lymph # (Auto) (1.0-4.3) K/uL [place] # (Auto) (0.0-0.8) K/uL Eos # (Auto) (0.0-0.7) K/uL Baso # (Auto) (0.0-0.2) K/uL Neutrophils % (Manual) (50-75) % Band Neutrophils % (0-2) % Lymphocytes % (Manual) (20-40) % Monocytes % (Manual) (0-10) % Platelet Estimate (NORMAL) PT (9.7-12.2) SECONDS INR APTT (21-34) SECONDS Sodium 142 (132-148) mmol/L Potassium 3.7 (3.6-5.2) mmol/L Chloride 103 (98-107) mmol/L Carbon Dioxide 26 (22-30) mmol/L Anion Gap 16 (10-20) BUN 27 H (7-17) mg/dL Creatinine 1.2 (0.7-1.2) mg/dL Est GFR ( Amer) 53 Est GFR (Non-Af Amer) 44 POC Glucose (mg/dL) 119 H (65-110) mg/dL Random Glucose 114 H (65-105) mg/dL Hemoglobin A1c (4.2-6.5) % Calcium 9.1 (8.6-10.4) mg/dl Phosphorus 2.7 (2.5-4.5) mg/dL Magnesium 1.9 (1.6-2.3) mg/dL Iron (37-170) ug/dL TIBC (250-450) ug/dL % Saturation (20-55) Total Bilirubin 2.0 H (0.2-1.3) mg/dL AST 40 H D (14-36) U/L ALT 15 (9-52) U/L Alkaline Phosphatase 92 (38-126) U/L Troponin I 0.1550 H* (0.00-0.120) ng/mL Total Protein 6.9 (6.3-8.3) g/dL Albumin 3.6 (3.5-5.0) g/dL Globulin 3.3 (2.2-3.9) gm/dL Albumin/Globulin Ratio 1.1 (1.0-2.1) Triglycerides (0-149) mg/dL Cholesterol (0-199) mg/dL LDL Cholesterol Direct (0-129) mg/dL HDL Cholesterol (30-70) mg/dL Urine Color Yellow (YELLOW) Urine Clarity Hazy (Clear) Urine pH 5.0 (5.0-8.0) Ur Specific [place] 1.015 (1.003-1.030) Urine Protein 2+ H (NEGATIVE) mg/dL Urine Glucose (UA) Normal (Normal) mg/dL Urine Ketones Trace (NEGATIVE) mg/dL Urine Blood 3+ H (NEGATIVE) Urine Nitrate Negative (NEGATIVE) Urine Bilirubin Negative (NEGATIVE) Urine Urobilinogen Normal (0.2-1.0) mg/dL Ur Leukocyte Esterase 1+ H (Negative) Fausto/uL Urine WBC (Auto) 19 H (0-5) /hpf Urine RBC (Auto) 336 H (0-3) /hpf Ur Squamous Epith Cells 1 (0-5) /hpf Urine Bacteria Rare (<OCC) Blood Type Antibody Screen 09/17/17 09/17/17 09/17/17 Range/Units 06:24 06:24 05:45 WBC 11.0 H (4.8-10.8) K/uL RBC 5.38 H (3.80-5.20) Mil/uL Hgb 14.6 D (11.0-16.0) g/dL Hct 44.6 (34.0-47.0) % MCV 83.0 (81.0-99.0) fL MCH 27.1 (27.0-31.0) pg MCHC 32.7 L (33.0-37.0) g/dL RDW 14.5 (11.5-14.5) % Plt Count 157 (130-400) K/uL MPV 8.4 (7.2-11.7) fL Neut % (Auto) 79.4 H (50.0-75.0) % Lymph % (Auto) 12.6 L (20.0-40.0) % [place] % (Auto) 6.8 (0.0-10.0) % Eos % (Auto) 0.0 (0.0-4.0) % Baso % (Auto) 1.2 (0.0-2.0) % Neut # (Auto) 8.7 H (1.8-7.0) K/uL Lymph # (Auto) 1.4 (1.0-4.3) K/uL [place] # (Auto) 0.8 (0.0-0.8) K/uL Eos # (Auto) 0.0 (0.0-0.7) K/uL Baso # (Auto) 0.1 (0.0-0.2) K/uL Neutrophils % (Manual) (50-75) % Band Neutrophils % (0-2) % Lymphocytes % (Manual) (20-40) % Monocytes % (Manual) (0-10) % Platelet Estimate (NORMAL) PT (9.7-12.2) SECONDS INR APTT (21-34) SECONDS Sodium (132-148) mmol/L Potassium (3.6-5.2) mmol/L Chloride (98-107) mmol/L Carbon Dioxide (22-30) mmol/L Anion Gap (10-20) BUN (7-17) mg/dL Creatinine (0.7-1.2) mg/dL Est GFR ( Amer) Est GFR (Non-Af Amer) POC Glucose (mg/dL) 125 H (65-110) mg/dL Random Glucose (65-105) mg/dL Hemoglobin A1c (4.2-6.5) % Calcium (8.6-10.4) mg/dl Phosphorus (2.5-4.5) mg/dL Magnesium (1.6-2.3) mg/dL Iron 41 (37-170) ug/dL TIBC 203 L (250-450) ug/dL % Saturation 20 (20-55) Total Bilirubin (0.2-1.3) mg/dL AST (14-36) U/L ALT (9-52) U/L Alkaline Phosphatase (38-126) U/L Troponin I (0.00-0.120) ng/mL Total Protein (6.3-8.3) g/dL Albumin (3.5-5.0) g/dL Globulin (2.2-3.9) gm/dL Albumin/Globulin Ratio (1.0-2.1) Triglycerides (0-149) mg/dL Cholesterol (0-199) mg/dL LDL Cholesterol Direct (0-129) mg/dL HDL Cholesterol (30-70) mg/dL Urine Color (YELLOW) Urine Clarity (Clear) Urine pH (5.0-8.0) Ur Specific [place] (1.003-1.030) Urine Protein (NEGATIVE) mg/dL Urine Glucose (UA) (Normal) mg/dL Urine Ketones (NEGATIVE) mg/dL Urine Blood (NEGATIVE) Urine Nitrate (NEGATIVE) Urine Bilirubin (NEGATIVE) Urine Urobilinogen (0.2-1.0) mg/dL Ur Leukocyte Esterase (Negative) Fausto/uL Urine WBC (Auto) (0-5) /hpf Urine RBC (Auto) (0-3) /hpf Ur Squamous Epith Cells (0-5) /hpf Urine Bacteria (<OCC) Blood Type Antibody Screen 09/17/17 09/16/17 09/16/17 Range/Units 01:10 20:47 20:47 WBC (4.8-10.8) K/uL RBC (3.80-5.20) Mil/uL Hgb (11.0-16.0) g/dL Hct (34.0-47.0) % MCV (81.0-99.0) fL MCH (27.0-31.0) pg MCHC (33.0-37.0) g/dL RDW (11.5-14.5) % Plt Count (130-400) K/uL MPV (7.2-11.7) fL Neut % (Auto) (50.0-75.0) % Lymph % (Auto) (20.0-40.0) % [place] % (Auto) (0.0-10.0) % Eos % (Auto) (0.0-4.0) % Baso % (Auto) (0.0-2.0) % Neut # (Auto) (1.8-7.0) K/uL Lymph # (Auto) (1.0-4.3) K/uL [place] # (Auto) (0.0-0.8) K/uL Eos # (Auto) (0.0-0.7) K/uL Baso # (Auto) (0.0-0.2) K/uL Neutrophils % (Manual) (50-75) % Band Neutrophils % (0-2) % Lymphocytes % (Manual) (20-40) % Monocytes % (Manual) (0-10) % Platelet Estimate (NORMAL) PT (9.7-12.2) SECONDS INR APTT (21-34) SECONDS Sodium (132-148) mmol/L Potassium (3.6-5.2) mmol/L Chloride (98-107) mmol/L Carbon Dioxide (22-30) mmol/L Anion Gap (10-20) BUN (7-17) mg/dL Creatinine (0.7-1.2) mg/dL Est GFR ( Amer) Est GFR (Non-Af Amer) POC Glucose (mg/dL) 115 H (65-110) mg/dL Random Glucose (65-105) mg/dL Hemoglobin A1c 5.3 (4.2-6.5) % Calcium (8.6-10.4) mg/dl Phosphorus (2.5-4.5) mg/dL Magnesium (1.6-2.3) mg/dL Iron (37-170) ug/dL TIBC (250-450) ug/dL % Saturation (20-55) Total Bilirubin (0.2-1.3) mg/dL AST (14-36) U/L ALT (9-52) U/L Alkaline Phosphatase (38-126) U/L Troponin I (0.00-0.120) ng/mL Total Protein (6.3-8.3) g/dL Albumin (3.5-5.0) g/dL Globulin (2.2-3.9) gm/dL Albumin/Globulin Ratio (1.0-2.1) Triglycerides (0-149) mg/dL Cholesterol (0-199) mg/dL LDL Cholesterol Direct (0-129) mg/dL HDL Cholesterol (30-70) mg/dL Urine Color (YELLOW) Urine Clarity (Clear) Urine pH (5.0-8.0) Ur Specific [place] (1.003-1.030) Urine Protein (NEGATIVE) mg/dL Urine Glucose (UA) (Normal) mg/dL Urine Ketones (NEGATIVE) mg/dL Urine Blood (NEGATIVE) Urine Nitrate (NEGATIVE) Urine Bilirubin (NEGATIVE) Urine Urobilinogen (0.2-1.0) mg/dL Ur Leukocyte Esterase (Negative) Fausto/uL Urine WBC (Auto) (0-5) /hpf Urine RBC (Auto) (0-3) /hpf Ur Squamous Epith Cells (0-5) /hpf Urine Bacteria (<OCC) Blood Type O POSITIVE Antibody Screen Negative 09/16/17 09/16/17 09/16/17 Range/Units 20:47 20:47 20:47 WBC 15.9 H D (4.8-10.8) K/uL RBC 6.11 H (3.80-5.20) Mil/uL Hgb 16.6 H D (11.0-16.0) g/dL Hct 50.7 H (34.0-47.0) % MCV 82.9 (81.0-99.0) fL MCH 27.1 (27.0-31.0) pg MCHC 32.7 L (33.0-37.0) g/dL RDW 14.4 (11.5-14.5) % Plt Count 208 (130-400) K/uL MPV 8.0 (7.2-11.7) fL Neut % (Auto) 91.7 H (50.0-75.0) % Lymph % (Auto) 4.2 L (20.0-40.0) % [place] % (Auto) 3.3 (0.0-10.0) % Eos % (Auto) 0.0 (0.0-4.0) % Baso % (Auto) 0.8 (0.0-2.0) % Neut # (Auto) 14.6 H (1.8-7.0) K/uL Lymph # (Auto) 0.7 L (1.0-4.3) K/uL [place] # (Auto) 0.5 (0.0-0.8) K/uL Eos # (Auto) 0.0 (0.0-0.7) K/uL Baso # (Auto) 0.1 (0.0-0.2) K/uL Neutrophils % (Manual) 88 H (50-75) % Band Neutrophils % 1 (0-2) % Lymphocytes % (Manual) 6 L (20-40) % Monocytes % (Manual) 5 (0-10) % Platelet Estimate Normal (NORMAL) PT 10.8 (9.7-12.2) SECONDS INR 1.0 APTT 25 (21-34) SECONDS Sodium 143 (132-148) mmol/L Potassium 3.9 (3.6-5.2) mmol/L Chloride 101 (98-107) mmol/L Carbon Dioxide 26 (22-30) mmol/L Anion Gap 19 (10-20) BUN 27 H (7-17) mg/dL Creatinine 1.2 (0.7-1.2) mg/dL Est GFR ( Amer) 53 Est GFR (Non-Af Amer) 44 POC Glucose (mg/dL) (65-110) mg/dL Random Glucose 154 H (65-105) mg/dL Hemoglobin A1c (4.2-6.5) % Calcium 9.7 (8.6-10.4) mg/dl Phosphorus (2.5-4.5) mg/dL Magnesium (1.6-2.3) mg/dL Iron (37-170) ug/dL TIBC (250-450) ug/dL % Saturation (20-55) Total Bilirubin 2.6 H (0.2-1.3) mg/dL AST 58 H (14-36) U/L ALT 20 (9-52) U/L Alkaline Phosphatase 118 (38-126) U/L Troponin I 0.1410 H* (0.00-0.120) ng/mL Total Protein 8.7 H (6.3-8.3) g/dL Albumin 4.5 (3.5-5.0) g/dL Globulin 4.2 H (2.2-3.9) gm/dL Albumin/Globulin Ratio 1.1 (1.0-2.1) Triglycerides 88 (0-149) mg/dL Cholesterol 243 H (0-199) mg/dL LDL Cholesterol Direct 117 (0-129) mg/dL HDL Cholesterol 99 H (30-70) mg/dL Urine Color (YELLOW) Urine Clarity (Clear) Urine pH (5.0-8.0) Ur Specific [place] (1.003-1.030) Urine Protein (NEGATIVE) mg/dL Urine Glucose (UA) (Normal) mg/dL Urine Ketones (NEGATIVE) mg/dL Urine Blood (NEGATIVE) Urine Nitrate (NEGATIVE) Urine Bilirubin (NEGATIVE) Urine Urobilinogen (0.2-1.0) mg/dL Ur Leukocyte Esterase (Negative) Fasuto/uL Urine WBC (Auto) (0-5) /hpf Urine RBC (Auto) (0-3) /hpf Ur Squamous Epith Cells (0-5) /hpf Urine Bacteria (<OCC) Blood Type Antibody Screen 09/16/17 Range/Units 20:42 WBC (4.8-10.8) K/uL RBC (3.80-5.20) Mil/uL Hgb (11.0-16.0) g/dL Hct (34.0-47.0) % MCV (81.0-99.0) fL MCH (27.0-31.0) pg MCHC (33.0-37.0) g/dL RDW (11.5-14.5) % Plt Count (130-400) K/uL MPV (7.2-11.7) fL Neut % (Auto) (50.0-75.0) % Lymph % (Auto) (20.0-40.0) % [place] % (Auto) (0.0-10.0) % Eos % (Auto) (0.0-4.0) % Baso % (Auto) (0.0-2.0) % Neut # (Auto) (1.8-7.0) K/uL Lymph # (Auto) (1.0-4.3) K/uL [place] # (Auto) (0.0-0.8) K/uL Eos # (Auto) (0.0-0.7) K/uL Baso # (Auto) (0.0-0.2) K/uL Neutrophils % (Manual) (50-75) % Band Neutrophils % (0-2) % Lymphocytes % (Manual) (20-40) % Monocytes % (Manual) (0-10) % Platelet Estimate (NORMAL) PT (9.7-12.2) SECONDS INR APTT (21-34) SECONDS Sodium (132-148) mmol/L Potassium (3.6-5.2) mmol/L Chloride (98-107) mmol/L Carbon Dioxide (22-30) mmol/L Anion Gap (10-20) BUN (7-17) mg/dL Creatinine (0.7-1.2) mg/dL Est GFR ( Amer) Est GFR (Non-Af Amer) POC Glucose (mg/dL) 125 H (65-110) mg/dL Random Glucose (65-105) mg/dL Hemoglobin A1c (4.2-6.5) % Calcium (8.6-10.4) mg/dl Phosphorus (2.5-4.5) mg/dL Magnesium (1.6-2.3) mg/dL Iron (37-170) ug/dL TIBC (250-450) ug/dL % Saturation (20-55) Total Bilirubin (0.2-1.3) mg/dL AST (14-36) U/L ALT (9-52) U/L Alkaline Phosphatase (38-126) U/L Troponin I (0.00-0.120) ng/mL Total Protein (6.3-8.3) g/dL Albumin (3.5-5.0) g/dL Globulin (2.2-3.9) gm/dL Albumin/Globulin Ratio (1.0-2.1) Triglycerides (0-149) mg/dL Cholesterol (0-199) mg/dL LDL Cholesterol Direct (0-129) mg/dL HDL Cholesterol (30-70) mg/dL Urine Color (YELLOW) Urine Clarity (Clear) Urine pH (5.0-8.0) Ur Specific [place] (1.003-1.030) Urine Protein (NEGATIVE) mg/dL Urine Glucose (UA) (Normal) mg/dL Urine Ketones (NEGATIVE) mg/dL Urine Blood (NEGATIVE) Urine Nitrate (NEGATIVE) Urine Bilirubin (NEGATIVE) Urine Urobilinogen (0.2-1.0) mg/dL Ur Leukocyte Esterase (Negative) Fausto/uL Urine WBC (Auto) (0-5) /hpf Urine RBC (Auto) (0-3) /hpf Ur Squamous Epith Cells (0-5) /hpf Urine Bacteria (<OCC) Blood Type Antibody Screen Laboratory Results - last 24 hr 09/16/17 09/16/17 09/16/17 20:42 20:47 20:47 WBC 15.9 H D RBC 6.11 H Hgb 16.6 H D Hct 50.7 H MCV 82.9 MCH 27.1 MCHC 32.7 L RDW 14.4 Plt Count 208 MPV 8.0 Neut % (Auto) 91.7 H Lymph % (Auto) 4.2 L [place] % (Auto) 3.3 Eos % (Auto) 0.0 Baso % (Auto) 0.8 Neut # (Auto) 14.6 H Lymph # (Auto) 0.7 L [place] # (Auto) 0.5 Eos # (Auto) 0.0 Baso # (Auto) 0.1 Neutrophils % (Manual) 88 H Band Neutrophils % 1 Lymphocytes % (Manual) 6 L Monocytes % (Manual) 5 Platelet Estimate Normal PT 10.8 INR 1.0 APTT 25 Sodium Potassium Chloride Carbon Dioxide Anion Gap BUN Creatinine Est GFR ( Amer) Est GFR (Non-Af Amer) POC Glucose (mg/dL) 125 H Random Glucose Hemoglobin A1c Calcium Phosphorus Magnesium Iron TIBC % Saturation Total Bilirubin AST ALT Alkaline Phosphatase Troponin I Total Protein Albumin Globulin Albumin/Globulin Ratio Triglycerides Cholesterol LDL Cholesterol Direct HDL Cholesterol Urine Color Urine Clarity Urine pH Ur Specific [place] Urine Protein Urine Glucose (UA) Urine Ketones Urine Blood Urine Nitrate Urine Bilirubin Urine Urobilinogen Ur Leukocyte Esterase Urine WBC (Auto) Urine RBC (Auto) Ur Squamous Epith Cells Urine Bacteria Blood Type Antibody Screen 09/16/17 09/16/17 09/16/17 20:47 20:47 20:47 WBC RBC Hgb Hct MCV MCH MCHC RDW Plt Count MPV Neut % (Auto) Lymph % (Auto) [place] % (Auto) Eos % (Auto) Baso % (Auto) Neut # (Auto) Lymph # (Auto) [place] # (Auto) Eos # (Auto) Baso # (Auto) Neutrophils % (Manual) Band Neutrophils % Lymphocytes % (Manual) Monocytes % (Manual) Platelet Estimate PT INR APTT Sodium 143 Potassium 3.9 Chloride 101 Carbon Dioxide 26 Anion Gap 19 BUN 27 H Creatinine 1.2 Est GFR ( Amer) 53 Est GFR (Non-Af Amer) 44 POC Glucose (mg/dL) Random Glucose 154 H Hemoglobin A1c 5.3 Calcium 9.7 Phosphorus Magnesium Iron TIBC % Saturation Total Bilirubin 2.6 H AST 58 H ALT 20 Alkaline Phosphatase 118 Troponin I 0.1410 H* Total Protein 8.7 H Albumin 4.5 Globulin 4.2 H Albumin/Globulin Ratio 1.1 Triglycerides 88 Cholesterol 243 H LDL Cholesterol Direct 117 HDL Cholesterol 99 H Urine Color Urine Clarity Urine pH Ur Specific [place] Urine Protein Urine Glucose (UA) Urine Ketones Urine Blood Urine Nitrate Urine Bilirubin Urine Urobilinogen Ur Leukocyte Esterase Urine WBC (Auto) Urine RBC (Auto) Ur Squamous Epith Cells Urine Bacteria Blood Type O POSITIVE Antibody Screen Negative 09/17/17 09/17/17 09/17/17 01:10 05:45 06:24 WBC RBC Hgb Hct MCV MCH MCHC RDW Plt Count MPV Neut % (Auto) Lymph % (Auto) [place] % (Auto) Eos % (Auto) Baso % (Auto) Neut # (Auto) Lymph # (Auto) [place] # (Auto) Eos # (Auto) Baso # (Auto) Neutrophils % (Manual) Band Neutrophils % Lymphocytes % (Manual) Monocytes % (Manual) Platelet Estimate PT INR APTT Sodium Potassium Chloride Carbon Dioxide Anion Gap BUN Creatinine Est GFR ( Amer) Est GFR (Non-Af Amer) POC Glucose (mg/dL) 115 H 125 H Random Glucose Hemoglobin A1c Calcium Phosphorus Magnesium Iron 41 TIBC 203 L % Saturation 20 Total Bilirubin AST ALT Alkaline Phosphatase Troponin I Total Protein Albumin Globulin Albumin/Globulin Ratio Triglycerides Cholesterol LDL Cholesterol Direct HDL Cholesterol Urine Color Urine Clarity Urine pH Ur Specific [place] Urine Protein Urine Glucose (UA) Urine Ketones Urine Blood Urine Nitrate Urine Bilirubin Urine Urobilinogen Ur Leukocyte Esterase Urine WBC (Auto) Urine RBC (Auto) Ur Squamous Epith Cells Urine Bacteria Blood Type Antibody Screen 09/17/17 09/17/17 09/17/17 06:24 06:24 11:08 WBC 11.0 H RBC 5.38 H Hgb 14.6 D Hct 44.6 MCV 83.0 MCH 27.1 MCHC 32.7 L RDW 14.5 Plt Count 157 MPV 8.4 Neut % (Auto) 79.4 H Lymph % (Auto) 12.6 L [place] % (Auto) 6.8 Eos % (Auto) 0.0 Baso % (Auto) 1.2 Neut # (Auto) 8.7 H Lymph # (Auto) 1.4 [place] # (Auto) 0.8 Eos # (Auto) 0.0 Baso # (Auto) 0.1 Neutrophils % (Manual) Band Neutrophils % Lymphocytes % (Manual) Monocytes % (Manual) Platelet Estimate PT INR APTT Sodium 142 Potassium 3.7 Chloride 103 Carbon Dioxide 26 Anion Gap 16 BUN 27 H Creatinine 1.2 Est GFR ( Amer) 53 Est GFR (Non-Af Amer) 44 POC Glucose (mg/dL) Random Glucose 114 H Hemoglobin A1c Calcium 9.1 Phosphorus 2.7 Magnesium 1.9 Iron TIBC % Saturation Total Bilirubin 2.0 H AST 40 H D ALT 15 Alkaline Phosphatase 92 Troponin I 0.1550 H* Total Protein 6.9 Albumin 3.6 Globulin 3.3 Albumin/Globulin Ratio 1.1 Triglycerides Cholesterol LDL Cholesterol Direct HDL Cholesterol Urine Color Yellow Urine Clarity Hazy Urine pH 5.0 Ur Specific [place] 1.015 Urine Protein 2+ H Urine Glucose (UA) Normal Urine Ketones Trace Urine Blood 3+ H Urine Nitrate Negative Urine Bilirubin Negative Urine Urobilinogen Normal Ur Leukocyte Esterase 1+ H Urine WBC (Auto) 19 H Urine RBC (Auto) 336 H Ur Squamous Epith Cells 1 Urine Bacteria Rare Blood Type Antibody Screen 09/17/17 11:27 WBC RBC Hgb Hct MCV MCH MCHC RDW Plt Count MPV Neut % (Auto) Lymph % (Auto) [place] % (Auto) Eos % (Auto) Baso % (Auto) Neut # (Auto) Lymph # (Auto) [place] # (Auto) Eos # (Auto) Baso # (Auto) Neutrophils % (Manual) Band Neutrophils % Lymphocytes % (Manual) Monocytes % (Manual) Platelet Estimate PT INR APTT Sodium Potassium Chloride Carbon Dioxide Anion Gap BUN Creatinine Est GFR ( Amer) Est GFR (Non-Af Amer) POC Glucose (mg/dL) 119 H Random Glucose Hemoglobin A1c Calcium Phosphorus Magnesium Iron TIBC % Saturation Total Bilirubin AST ALT Alkaline Phosphatase Troponin I Total Protein Albumin Globulin Albumin/Globulin Ratio Triglycerides Cholesterol LDL Cholesterol Direct HDL Cholesterol Urine Color Urine Clarity Urine pH Ur Specific [place] Urine Protein Urine Glucose (UA) Urine Ketones Urine Blood Urine Nitrate Urine Bilirubin Urine Urobilinogen Ur Leukocyte Esterase Urine WBC (Auto) Urine RBC (Auto) Ur Squamous Epith Cells Urine Bacteria Blood Type Antibody Screen EKG/Cardiology Studies: Cardiology / EKG Studies 09/16/17 20:41 ELECTROCARDIOGRAM Stat Comment: Mode Of Transportation: BED Reason For Exam: code stroke alert 09/17/17 09:41 ELECTROCARDIOGRAM Stat Comment: Mode Of Transportation: Reason For Exam: qtc prolongation Fingerstick Blood Sugar Results: 119 Critical Care Progress Note - Nutrition Nutrition: Nutrition Category Date Time Status NPO Diet [DIET] Diets 09/17/17 Lunch Active Assessment/Plan - Assessment and Plan (Free Text) Assessment: Patient is a 76 year old female with past medical history of hypertension, dyslipidemia, vitamin d deficiency presented to the hospital after being found at home on the floor for unknown amount of time. CT head on arrival showed right basal ganglia bleeding with surrounding edema, Right posterior horn lateral ventricle bleeding. Neurosurgery on board. Admitted to the ICU for further monitoring Neurology: -Patient opens eyes to verbal stimuli -Very lethargic, not following commands -Per the family, patient has had TIA; she had left sided weakness but was able to ambulate with assistance and performed her ADLs independently -Will repeat CT head this morning -Cervical spine CT showed no acute findings -Carotid duplex and echocardiogram ordered -Seizure ppx: Started on Keppra 500mg IV Q12H -Seizure precautions, aspiration precautions -Neuro checks q2 hours -Neurology on consult, help appreciated -Neurosurgery on consult, help appreciated Cardiovascular: -218/144 on admission, Hypertensive crisis -Patient on Cardene drip for BP control -Carotid duplex and echocardiogram ordered -EKG in the ED showed prolonged QTc interval -Will repeat EKG this morning -Troponin elevated 0.1410, will continue to trend -History of dyslipidemia on lipitor 10mg PO daily at home GI: -Patient is NPO -Swallow evaluation is pending -Protonix 40mg IVP daily Renal: -Sahu draining to gravity -Monitor I/Os -NS at 100cc/hr -Monitor electrolytes -UA and urine culture ordered Heme/Onc: -Leukocytosis 15.9 -> 11, likely reactive -Monitor serial CBCs Infectious Disease: -Urine culture and urinalysis ordered GI/DVT ppx: -Protonix 40mg IVP daily -VTE contraindicated secondary to intracranial bleed -SCDs <Toan Ha - Last Filed: 09/17/17 19:00> CCU Objective - Vital Signs / Intake & Output Vital Signs (Last 4 hours): Vital Signs Temp Pulse Resp BP Pulse Ox 09/17/17 18:00 96 H 22 139/70 99 09/17/17 17:01 93 H 22 130/65 98 09/17/17 17:00 97 H 24 95 09/17/17 16:01 106 H 31 H 162/84 H 94 L 09/17/17 16:00 98.2 F 108 H 17 97 09/17/17 15:09 105 H 20 149/81 100 09/17/17 15:00 109 H 13 98 Intake and Output (Last 8hrs): Intake & Output 09/17/17 09/17/17 09/17/17 06:59 14:59 22:59 Intake Total 1005 1185 460 Output Total 800 240 105 Balance 205 945 355 Weight 178 lb 5 oz 177 lb 9.6 oz Intake: IV 155 60 Intake, IV Amount 850 1125 460 Left Hand 0 Right Antecubital 150 220 60 Right Antecubital Y-site 700 905 400 Output: Urine 800 240 105 Urethral (Sahu) 800 240 105 Other: Voiding Method Indwelling Catheter - Medications Active Medications: Active Medications Generic Name Dose Route Start Last Admin Trade Name Freq PRN Reason Stop Dose Admin Nicardipine HCl 25 mg/ Sodium 250 mls @ 50 mls/hr 09/16/17 21:30 09/17/17 18: 08 Chloride IV Not Given .Q5H CORNEL Protocol 5 MG/HR Levetiracetam 500 mg/ Sodium 105 mls @ 420 mls/hr 09/16/17 23:45 09/17/17 11: 35 Chloride IVPB 420 mls/hr Q12H CORNEL Administration Sodium Chloride 1,000 mls @ 100 mls/hr 09/16/17 23:45 09/17/17 10:38 Sodium Chloride 0.9% IV 100 mls/hr .Q10H CORNEL Administration Sodium Chloride 500 mls @ 50 mls/hr 09/17/17 17:45 Hypertonic Saline 3% IV 09/18/17 03:44 .Q10H ONE Pantoprazole Sodium 40 mg 09/17/17 10:00 09/17/17 10:37 Protonix Inj IVP 40 mg DAILY CORNEL Administration - Patient Studies Lab Studies: Lab Studies 09/17/17 09/17/17 09/17/17 Range/Units 17:40 11:27 11:08 WBC (4.8-10.8) K/uL RBC (3.80-5.20) Mil/uL Hgb (11.0-16.0) g/dL Hct (34.0-47.0) % MCV (81.0-99.0) fL MCH (27.0-31.0) pg MCHC (33.0-37.0) g/dL RDW (11.5-14.5) % Plt Count (130-400) K/uL MPV (7.2-11.7) fL Neut % (Auto) (50.0-75.0) % Lymph % (Auto) (20.0-40.0) % [place] % (Auto) (0.0-10.0) % Eos % (Auto) (0.0-4.0) % Baso % (Auto) (0.0-2.0) % Neut # (Auto) (1.8-7.0) K/uL Lymph # (Auto) (1.0-4.3) K/uL [place] # (Auto) (0.0-0.8) K/uL Eos # (Auto) (0.0-0.7) K/uL Baso # (Auto) (0.0-0.2) K/uL Neutrophils % (Manual) (50-75) % Band Neutrophils % (0-2) % Lymphocytes % (Manual) (20-40) % Monocytes % (Manual) (0-10) % Platelet Estimate (NORMAL) PT (9.7-12.2) SECONDS INR APTT (21-34) SECONDS Sodium (132-148) mmol/L Potassium (3.6-5.2) mmol/L Chloride (98-107) mmol/L Carbon Dioxide (22-30) mmol/L Anion Gap (10-20) BUN (7-17) mg/dL Creatinine (0.7-1.2) mg/dL Est GFR ( Amer) Est GFR (Non-Af Amer) POC Glucose (mg/dL) 105 119 H (65-110) mg/dL Random Glucose (65-105) mg/dL Hemoglobin A1c (4.2-6.5) % Calcium (8.6-10.4) mg/dl Phosphorus (2.5-4.5) mg/dL Magnesium (1.6-2.3) mg/dL Iron (37-170) ug/dL TIBC (250-450) ug/dL % Saturation (20-55) Total Bilirubin (0.2-1.3) mg/dL AST (14-36) U/L ALT (9-52) U/L Alkaline Phosphatase (38-126) U/L Troponin I (0.00-0.120) ng/mL Total Protein (6.3-8.3) g/dL Albumin (3.5-5.0) g/dL Globulin (2.2-3.9) gm/dL Albumin/Globulin Ratio (1.0-2.1) Triglycerides (0-149) mg/dL Cholesterol (0-199) mg/dL LDL Cholesterol Direct (0-129) mg/dL HDL Cholesterol (30-70) mg/dL Urine Color Yellow (YELLOW) Urine Clarity Hazy (Clear) Urine pH 5.0 (5.0-8.0) Ur Specific [place] 1.015 (1.003-1.030) Urine Protein 2+ H (NEGATIVE) mg/dL Urine Glucose (UA) Normal (Normal) mg/dL Urine Ketones Trace (NEGATIVE) mg/dL Urine Blood 3+ H (NEGATIVE) Urine Nitrate Negative (NEGATIVE) Urine Bilirubin Negative (NEGATIVE) Urine Urobilinogen Normal (0.2-1.0) mg/dL Ur Leukocyte Esterase 1+ H (Negative) Fausto/uL Urine WBC (Auto) 19 H (0-5) /hpf Urine RBC (Auto) 336 H (0-3) /hpf Ur Squamous Epith Cells 1 (0-5) /hpf Urine Bacteria Rare (<OCC) Blood Type Antibody Screen 09/17/17 09/17/17 09/17/17 Range/Units 06:24 06:24 06:24 WBC 11.0 H (4.8-10.8) K/uL RBC 5.38 H (3.80-5.20) Mil/uL Hgb 14.6 D (11.0-16.0) g/dL Hct 44.6 (34.0-47.0) % MCV 83.0 (81.0-99.0) fL MCH 27.1 (27.0-31.0) pg MCHC 32.7 L (33.0-37.0) g/dL RDW 14.5 (11.5-14.5) % Plt Count 157 (130-400) K/uL MPV 8.4 (7.2-11.7) fL Neut % (Auto) 79.4 H (50.0-75.0) % Lymph % (Auto) 12.6 L (20.0-40.0) % [place] % (Auto) 6.8 (0.0-10.0) % Eos % (Auto) 0.0 (0.0-4.0) % Baso % (Auto) 1.2 (0.0-2.0) % Neut # (Auto) 8.7 H (1.8-7.0) K/uL Lymph # (Auto) 1.4 (1.0-4.3) K/uL [place] # (Auto) 0.8 (0.0-0.8) K/uL Eos # (Auto) 0.0 (0.0-0.7) K/uL Baso # (Auto) 0.1 (0.0-0.2) K/uL Neutrophils % (Manual) (50-75) % Band Neutrophils % (0-2) % Lymphocytes % (Manual) (20-40) % Monocytes % (Manual) (0-10) % Platelet Estimate (NORMAL) PT (9.7-12.2) SECONDS INR APTT (21-34) SECONDS Sodium 142 (132-148) mmol/L Potassium 3.7 (3.6-5.2) mmol/L Chloride 103 (98-107) mmol/L Carbon Dioxide 26 (22-30) mmol/L Anion Gap 16 (10-20) BUN 27 H (7-17) mg/dL Creatinine 1.2 (0.7-1.2) mg/dL Est GFR ( Amer) 53 Est GFR (Non-Af Amer) 44 POC Glucose (mg/dL) (65-110) mg/dL Random Glucose 114 H (65-105) mg/dL Hemoglobin A1c (4.2-6.5) % Calcium 9.1 (8.6-10.4) mg/dl Phosphorus 2.7 (2.5-4.5) mg/dL Magnesium 1.9 (1.6-2.3) mg/dL Iron 41 (37-170) ug/dL TIBC 203 L (250-450) ug/dL % Saturation 20 (20-55) Total Bilirubin 2.0 H (0.2-1.3) mg/dL AST 40 H D (14-36) U/L ALT 15 (9-52) U/L Alkaline Phosphatase 92 (38-126) U/L Troponin I 0.1550 H* (0.00-0.120) ng/mL Total Protein 6.9 (6.3-8.3) g/dL Albumin 3.6 (3.5-5.0) g/dL Globulin 3.3 (2.2-3.9) gm/dL Albumin/Globulin Ratio 1.1 (1.0-2.1) Triglycerides (0-149) mg/dL Cholesterol (0-199) mg/dL LDL Cholesterol Direct (0-129) mg/dL HDL Cholesterol (30-70) mg/dL Urine Color (YELLOW) Urine Clarity (Clear) Urine pH (5.0-8.0) Ur Specific [place] (1.003-1.030) Urine Protein (NEGATIVE) mg/dL Urine Glucose (UA) (Normal) mg/dL Urine Ketones (NEGATIVE) mg/dL Urine Blood (NEGATIVE) Urine Nitrate (NEGATIVE) Urine Bilirubin (NEGATIVE) Urine Urobilinogen (0.2-1.0) mg/dL Ur Leukocyte Esterase (Negative) Fausto/uL Urine WBC (Auto) (0-5) /hpf Urine RBC (Auto) (0-3) /hpf Ur Squamous Epith Cells (0-5) /hpf Urine Bacteria (<OCC) Blood Type Antibody Screen 09/17/17 09/17/17 09/16/17 Range/Units 05:45 01:10 20:47 WBC (4.8-10.8) K/uL RBC (3.80-5.20) Mil/uL Hgb (11.0-16.0) g/dL Hct (34.0-47.0) % MCV (81.0-99.0) fL MCH (27.0-31.0) pg MCHC (33.0-37.0) g/dL RDW (11.5-14.5) % Plt Count (130-400) K/uL MPV (7.2-11.7) fL Neut % (Auto) (50.0-75.0) % Lymph % (Auto) (20.0-40.0) % [place] % (Auto) (0.0-10.0) % Eos % (Auto) (0.0-4.0) % Baso % (Auto) (0.0-2.0) % Neut # (Auto) (1.8-7.0) K/uL Lymph # (Auto) (1.0-4.3) K/uL [place] # (Auto) (0.0-0.8) K/uL Eos # (Auto) (0.0-0.7) K/uL Baso # (Auto) (0.0-0.2) K/uL Neutrophils % (Manual) (50-75) % Band Neutrophils % (0-2) % Lymphocytes % (Manual) (20-40) % Monocytes % (Manual) (0-10) % Platelet Estimate (NORMAL) PT (9.7-12.2) SECONDS INR APTT (21-34) SECONDS Sodium (132-148) mmol/L Potassium (3.6-5.2) mmol/L Chloride (98-107) mmol/L Carbon Dioxide (22-30) mmol/L Anion Gap (10-20) BUN (7-17) mg/dL Creatinine (0.7-1.2) mg/dL Est GFR ( Amer) Est GFR (Non-Af Amer) POC Glucose (mg/dL) 125 H 115 H (65-110) mg/dL Random Glucose (65-105) mg/dL Hemoglobin A1c (4.2-6.5) % Calcium (8.6-10.4) mg/dl Phosphorus (2.5-4.5) mg/dL Magnesium (1.6-2.3) mg/dL Iron (37-170) ug/dL TIBC (250-450) ug/dL % Saturation (20-55) Total Bilirubin (0.2-1.3) mg/dL AST (14-36) U/L ALT (9-52) U/L Alkaline Phosphatase (38-126) U/L Troponin I (0.00-0.120) ng/mL Total Protein (6.3-8.3) g/dL Albumin (3.5-5.0) g/dL Globulin (2.2-3.9) gm/dL Albumin/Globulin Ratio (1.0-2.1) Triglycerides (0-149) mg/dL Cholesterol (0-199) mg/dL LDL Cholesterol Direct (0-129) mg/dL HDL Cholesterol (30-70) mg/dL Urine Color (YELLOW) Urine Clarity (Clear) Urine pH (5.0-8.0) Ur Specific [place] (1.003-1.030) Urine Protein (NEGATIVE) mg/dL Urine Glucose (UA) (Normal) mg/dL Urine Ketones (NEGATIVE) mg/dL Urine Blood (NEGATIVE) Urine Nitrate (NEGATIVE) Urine Bilirubin (NEGATIVE) Urine Urobilinogen (0.2-1.0) mg/dL Ur Leukocyte Esterase (Negative) Fausto/uL Urine WBC (Auto) (0-5) /hpf Urine RBC (Auto) (0-3) /hpf Ur Squamous Epith Cells (0-5) /hpf Urine Bacteria (<OCC) Blood Type O POSITIVE Antibody Screen Negative 09/16/17 09/16/17 09/16/17 Range/Units 20:47 20:47 20:47 WBC (4.8-10.8) K/uL RBC (3.80-5.20) Mil/uL Hgb (11.0-16.0) g/dL Hct (34.0-47.0) % MCV (81.0-99.0) fL MCH (27.0-31.0) pg MCHC (33.0-37.0) g/dL RDW (11.5-14.5) % Plt Count (130-400) K/uL MPV (7.2-11.7) fL Neut % (Auto) (50.0-75.0) % Lymph % (Auto) (20.0-40.0) % [place] % (Auto) (0.0-10.0) % Eos % (Auto) (0.0-4.0) % Baso % (Auto) (0.0-2.0) % Neut # (Auto) (1.8-7.0) K/uL Lymph # (Auto) (1.0-4.3) K/uL [place] # (Auto) (0.0-0.8) K/uL Eos # (Auto) (0.0-0.7) K/uL Baso # (Auto) (0.0-0.2) K/uL Neutrophils % (Manual) (50-75) % Band Neutrophils % (0-2) % Lymphocytes % (Manual) (20-40) % Monocytes % (Manual) (0-10) % Platelet Estimate (NORMAL) PT 10.8 (9.7-12.2) SECONDS INR 1.0 APTT 25 (21-34) SECONDS Sodium 143 (132-148) mmol/L Potassium 3.9 (3.6-5.2) mmol/L Chloride 101 (98-107) mmol/L Carbon Dioxide 26 (22-30) mmol/L Anion Gap 19 (10-20) BUN 27 H (7-17) mg/dL Creatinine 1.2 (0.7-1.2) mg/dL Est GFR ( Amer) 53 Est GFR (Non-Af Amer) 44 POC Glucose (mg/dL) (65-110) mg/dL Random Glucose 154 H (65-105) mg/dL Hemoglobin A1c 5.3 (4.2-6.5) % Calcium 9.7 (8.6-10.4) mg/dl Phosphorus (2.5-4.5) mg/dL Magnesium (1.6-2.3) mg/dL Iron (37-170) ug/dL TIBC (250-450) ug/dL % Saturation (20-55) Total Bilirubin 2.6 H (0.2-1.3) mg/dL AST 58 H (14-36) U/L ALT 20 (9-52) U/L Alkaline Phosphatase 118 (38-126) U/L Troponin I 0.1410 H* (0.00-0.120) ng/mL Total Protein 8.7 H (6.3-8.3) g/dL Albumin 4.5 (3.5-5.0) g/dL Globulin 4.2 H (2.2-3.9) gm/dL Albumin/Globulin Ratio 1.1 (1.0-2.1) Triglycerides 88 (0-149) mg/dL Cholesterol 243 H (0-199) mg/dL LDL Cholesterol Direct 117 (0-129) mg/dL HDL Cholesterol 99 H (30-70) mg/dL Urine Color (YELLOW) Urine Clarity (Clear) Urine pH (5.0-8.0) Ur Specific [place] (1.003-1.030) Urine Protein (NEGATIVE) mg/dL Urine Glucose (UA) (Normal) mg/dL Urine Ketones (NEGATIVE) mg/dL Urine Blood (NEGATIVE) Urine Nitrate (NEGATIVE) Urine Bilirubin (NEGATIVE) Urine Urobilinogen (0.2-1.0) mg/dL Ur Leukocyte Esterase (Negative) Fausto/uL Urine WBC (Auto) (0-5) /hpf Urine RBC (Auto) (0-3) /hpf Ur Squamous Epith Cells (0-5) /hpf Urine Bacteria (<OCC) Blood Type Antibody Screen 09/16/17 09/16/17 Range/Units 20:47 20:42 WBC 15.9 H D (4.8-10.8) K/uL RBC 6.11 H (3.80-5.20) Mil/uL Hgb 16.6 H D (11.0-16.0) g/dL Hct 50.7 H (34.0-47.0) % MCV 82.9 (81.0-99.0) fL MCH 27.1 (27.0-31.0) pg MCHC 32.7 L (33.0-37.0) g/dL RDW 14.4 (11.5-14.5) % Plt Count 208 (130-400) K/uL MPV 8.0 (7.2-11.7) fL Neut % (Auto) 91.7 H (50.0-75.0) % Lymph % (Auto) 4.2 L (20.0-40.0) % [place] % (Auto) 3.3 (0.0-10.0) % Eos % (Auto) 0.0 (0.0-4.0) % Baso % (Auto) 0.8 (0.0-2.0) % Neut # (Auto) 14.6 H (1.8-7.0) K/uL Lymph # (Auto) 0.7 L (1.0-4.3) K/uL [place] # (Auto) 0.5 (0.0-0.8) K/uL Eos # (Auto) 0.0 (0.0-0.7) K/uL Baso # (Auto) 0.1 (0.0-0.2) K/uL Neutrophils % (Manual) 88 H (50-75) % Band Neutrophils % 1 (0-2) % Lymphocytes % (Manual) 6 L (20-40) % Monocytes % (Manual) 5 (0-10) % Platelet Estimate Normal (NORMAL) PT (9.7-12.2) SECONDS INR APTT (21-34) SECONDS Sodium (132-148) mmol/L Potassium (3.6-5.2) mmol/L Chloride (98-107) mmol/L Carbon Dioxide (22-30) mmol/L Anion Gap (10-20) BUN (7-17) mg/dL Creatinine (0.7-1.2) mg/dL Est GFR ( Amer) Est GFR (Non-Af Amer) POC Glucose (mg/dL) 125 H (65-110) mg/dL Random Glucose (65-105) mg/dL Hemoglobin A1c (4.2-6.5) % Calcium (8.6-10.4) mg/dl Phosphorus (2.5-4.5) mg/dL Magnesium (1.6-2.3) mg/dL Iron (37-170) ug/dL TIBC (250-450) ug/dL % Saturation (20-55) Total Bilirubin (0.2-1.3) mg/dL AST (14-36) U/L ALT (9-52) U/L Alkaline Phosphatase (38-126) U/L Troponin I (0.00-0.120) ng/mL Total Protein (6.3-8.3) g/dL Albumin (3.5-5.0) g/dL Globulin (2.2-3.9) gm/dL Albumin/Globulin Ratio (1.0-2.1) Triglycerides (0-149) mg/dL Cholesterol (0-199) mg/dL LDL Cholesterol Direct (0-129) mg/dL HDL Cholesterol (30-70) mg/dL Urine Color (YELLOW) Urine Clarity (Clear) Urine pH (5.0-8.0) Ur Specific [place] (1.003-1.030) Urine Protein (NEGATIVE) mg/dL Urine Glucose (UA) (Normal) mg/dL Urine Ketones (NEGATIVE) mg/dL Urine Blood (NEGATIVE) Urine Nitrate (NEGATIVE) Urine Bilirubin (NEGATIVE) Urine Urobilinogen (0.2-1.0) mg/dL Ur Leukocyte Esterase (Negative) Fausto/uL Urine WBC (Auto) (0-5) /hpf Urine RBC (Auto) (0-3) /hpf Ur Squamous Epith Cells (0-5) /hpf Urine Bacteria (<OCC) Blood Type Antibody Screen Laboratory Results - last 24 hr 09/16/17 09/16/17 09/16/17 20:42 20:47 20:47 WBC 15.9 H D RBC 6.11 H Hgb 16.6 H D Hct 50.7 H MCV 82.9 MCH 27.1 MCHC 32.7 L RDW 14.4 Plt Count 208 MPV 8.0 Neut % (Auto) 91.7 H Lymph % (Auto) 4.2 L [place] % (Auto) 3.3 Eos % (Auto) 0.0 Baso % (Auto) 0.8 Neut # (Auto) 14.6 H Lymph # (Auto) 0.7 L [place] # (Auto) 0.5 Eos # (Auto) 0.0 Baso # (Auto) 0.1 Neutrophils % (Manual) 88 H Band Neutrophils % 1 Lymphocytes % (Manual) 6 L Monocytes % (Manual) 5 Platelet Estimate Normal PT 10.8 INR 1.0 APTT 25 Sodium Potassium Chloride Carbon Dioxide Anion Gap BUN Creatinine Est GFR ( Amer) Est GFR (Non-Af Amer) POC Glucose (mg/dL) 125 H Random Glucose Hemoglobin A1c Calcium Phosphorus Magnesium Iron TIBC % Saturation Total Bilirubin AST ALT Alkaline Phosphatase Troponin I Total Protein Albumin Globulin Albumin/Globulin Ratio Triglycerides Cholesterol LDL Cholesterol Direct HDL Cholesterol Urine Color Urine Clarity Urine pH Ur Specific [place] Urine Protein Urine Glucose (UA) Urine Ketones Urine Blood Urine Nitrate Urine Bilirubin Urine Urobilinogen Ur Leukocyte Esterase Urine WBC (Auto) Urine RBC (Auto) Ur Squamous Epith Cells Urine Bacteria Blood Type Antibody Screen 09/16/17 09/16/17 09/16/17 20:47 20:47 20:47 WBC RBC Hgb Hct MCV MCH MCHC RDW Plt Count MPV Neut % (Auto) Lymph % (Auto) [place] % (Auto) Eos % (Auto) Baso % (Auto) Neut # (Auto) Lymph # (Auto) [place] # (Auto) Eos # (Auto) Baso # (Auto) Neutrophils % (Manual) Band Neutrophils % Lymphocytes % (Manual) Monocytes % (Manual) Platelet Estimate PT INR APTT Sodium 143 Potassium 3.9 Chloride 101 Carbon Dioxide 26 Anion Gap 19 BUN 27 H Creatinine 1.2 Est GFR ( Amer) 53 Est GFR (Non-Af Amer) 44 POC Glucose (mg/dL) Random Glucose 154 H Hemoglobin A1c 5.3 Calcium 9.7 Phosphorus Magnesium Iron TIBC % Saturation Total Bilirubin 2.6 H AST 58 H ALT 20 Alkaline Phosphatase 118 Troponin I 0.1410 H* Total Protein 8.7 H Albumin 4.5 Globulin 4.2 H Albumin/Globulin Ratio 1.1 Triglycerides 88 Cholesterol 243 H LDL Cholesterol Direct 117 HDL Cholesterol 99 H Urine Color Urine Clarity Urine pH Ur Specific [place] Urine Protein Urine Glucose (UA) Urine Ketones Urine Blood Urine Nitrate Urine Bilirubin Urine Urobilinogen Ur Leukocyte Esterase Urine WBC (Auto) Urine RBC (Auto) Ur Squamous Epith Cells Urine Bacteria Blood Type O POSITIVE Antibody Screen Negative 09/17/17 09/17/17 09/17/17 01:10 05:45 06:24 WBC RBC Hgb Hct MCV MCH MCHC RDW Plt Count MPV Neut % (Auto) Lymph % (Auto) [place] % (Auto) Eos % (Auto) Baso % (Auto) Neut # (Auto) Lymph # (Auto) [place] # (Auto) Eos # (Auto) Baso # (Auto) Neutrophils % (Manual) Band Neutrophils % Lymphocytes % (Manual) Monocytes % (Manual) Platelet Estimate PT INR APTT Sodium Potassium Chloride Carbon Dioxide Anion Gap BUN Creatinine Est GFR ( Amer) Est GFR (Non-Af Amer) POC Glucose (mg/dL) 115 H 125 H Random Glucose Hemoglobin A1c Calcium Phosphorus Magnesium Iron 41 TIBC 203 L % Saturation 20 Total Bilirubin AST ALT Alkaline Phosphatase Troponin I Total Protein Albumin Globulin Albumin/Globulin Ratio Triglycerides Cholesterol LDL Cholesterol Direct HDL Cholesterol Urine Color Urine Clarity Urine pH Ur Specific [place] Urine Protein Urine Glucose (UA) Urine Ketones Urine Blood Urine Nitrate Urine Bilirubin Urine Urobilinogen Ur Leukocyte Esterase Urine WBC (Auto) Urine RBC (Auto) Ur Squamous Epith Cells Urine Bacteria Blood Type Antibody Screen 09/17/17 09/17/17 09/17/17 06:24 06:24 11:08 WBC 11.0 H RBC 5.38 H Hgb 14.6 D Hct 44.6 MCV 83.0 MCH 27.1 MCHC 32.7 L RDW 14.5 Plt Count 157 MPV 8.4 Neut % (Auto) 79.4 H Lymph % (Auto) 12.6 L [place] % (Auto) 6.8 Eos % (Auto) 0.0 Baso % (Auto) 1.2 Neut # (Auto) 8.7 H Lymph # (Auto) 1.4 [place] # (Auto) 0.8 Eos # (Auto) 0.0 Baso # (Auto) 0.1 Neutrophils % (Manual) Band Neutrophils % Lymphocytes % (Manual) Monocytes % (Manual) Platelet Estimate PT INR APTT Sodium 142 Potassium 3.7 Chloride 103 Carbon Dioxide 26 Anion Gap 16 BUN 27 H Creatinine 1.2 Est GFR ( Amer) 53 Est GFR (Non-Af Amer) 44 POC Glucose (mg/dL) Random Glucose 114 H Hemoglobin A1c Calcium 9.1 Phosphorus 2.7 Magnesium 1.9 Iron TIBC % Saturation Total Bilirubin 2.0 H AST 40 H D ALT 15 Alkaline Phosphatase 92 Troponin I 0.1550 H* Total Protein 6.9 Albumin 3.6 Globulin 3.3 Albumin/Globulin Ratio 1.1 Triglycerides Cholesterol LDL Cholesterol Direct HDL Cholesterol Urine Color Yellow Urine Clarity Hazy Urine pH 5.0 Ur Specific [place] 1.015 Urine Protein 2+ H Urine Glucose (UA) Normal Urine Ketones Trace Urine Blood 3+ H Urine Nitrate Negative Urine Bilirubin Negative Urine Urobilinogen Normal Ur Leukocyte Esterase 1+ H Urine WBC (Auto) 19 H Urine RBC (Auto) 336 H Ur Squamous Epith Cells 1 Urine Bacteria Rare Blood Type Antibody Screen 09/17/17 09/17/17 11:27 17:40 WBC RBC Hgb Hct MCV MCH MCHC RDW Plt Count MPV Neut % (Auto) Lymph % (Auto) [place] % (Auto) Eos % (Auto) Baso % (Auto) Neut # (Auto) Lymph # (Auto) [place] # (Auto) Eos # (Auto) Baso # (Auto) Neutrophils % (Manual) Band Neutrophils % Lymphocytes % (Manual) Monocytes % (Manual) Platelet Estimate PT INR APTT Sodium Potassium Chloride Carbon Dioxide Anion Gap BUN Creatinine Est GFR ( Amer) Est GFR (Non-Af Amer) POC Glucose (mg/dL) 119 H 105 Random Glucose Hemoglobin A1c Calcium Phosphorus Magnesium Iron TIBC % Saturation Total Bilirubin AST ALT Alkaline Phosphatase Troponin I Total Protein Albumin Globulin Albumin/Globulin Ratio Triglycerides Cholesterol LDL Cholesterol Direct HDL Cholesterol Urine Color Urine Clarity Urine pH Ur Specific [place] Urine Protein Urine Glucose (UA) Urine Ketones Urine Blood Urine Nitrate Urine Bilirubin Urine Urobilinogen Ur Leukocyte Esterase Urine WBC (Auto) Urine RBC (Auto) Ur Squamous Epith Cells Urine Bacteria Blood Type Antibody Screen EKG/Cardiology Studies: Cardiology / EKG Studies 09/16/17 20:41 ELECTROCARDIOGRAM Stat Comment: Mode Of Transportation: BED Reason For Exam: code stroke alert 09/17/17 09:41 ELECTROCARDIOGRAM Stat Comment: Mode Of Transportation: Reason For Exam: qtc prolongation Critical Care Progress Note - Nutrition Nutrition: Nutrition Category Date Time Status NPO Diet [DIET] Diets 09/17/17 Lunch Active Attending/Attestation - Attestation I have personally seen and examined this patient.: Yes I have fully participated in the care of the patient.: Yes I have reviewed all pertinent clinical information: Yes Notes (Text): 09/17/17 19:00 Today: August The Patient was seen and examined at the bedside, Medical records reviewed, and management issues were discussed and formulated with the house staff. I have reviewed all the relevant clinical, laboratory, hemodynamic, radiographic data and medications Events reviewed Pain issues, skin care, head of the bed elevation, glycemic control were addressed. Agree with above resident's assessment and treatment plans of care as transcribed in Dr. Vasquez note.
[2017-09-17] MEDS ORDERED: Sodium Chloride 3% 500 ML IV ONE (17:45)
--- NOTE | 2017-09-17 20:58 | CARD ---
APPROVED REPORT EXAM: Two-dimensional and M-mode echocardiogram with Doppler and color Doppler. Other Information Quality : LimitedRhythm : NSR INDICATION CVA/TIA Non STEMI RISK FACTORS Hypertension M-Mode DIMENSIONS RVDd0.87 (2.1-3.2cm)Left Atrium (MM)3.16 (2.5-4.0cm) IVSd0.73 (0.7-1.1cm)Aortic Root2.97 (2.2-3.7cm) LVDd4.75 (4.0-5.6cm)Aortic Cusp Exc.1.68 (1.5-2.0cm) PWd0.73 (0.7-1.1cm)FS (%) 43 % LVDs2.71 (2.0-3.8cm)LVEF (%)74 (>50%) Aortic Valve AoV Peak Cdpiaxnw419.9cm/Marlena Peak GR.9mmHg Mitral Valve MV E Bjelqsgo90.1cm/sMV A Wfhhqwze521.3cm/sE/A ratio0.5 TDI E/Lateral E'0.0E/Medial E'0.0 Tricuspid Valve TR Peak [id number]/[id number] Peak [id number] LEFT VENTRICLE The left ventricle is normal size. There is mild concentric left ventricular hypertrophy. Left ventricle systolic function is normal. The Ejection Fraction is 65-70%. There is normal LV segmental wall motion. Transmitral Doppler flow pattern is Grade I-abnormal relaxation pattern. There is no ventricular septal defect visualized. RIGHT VENTRICLE The right ventricle is normal size. The right ventricular systolic function is normal. ATRIA The left atrium is mildly dilated. The right atrium size is normal. AORTIC VALVE The aortic valve is mildly sclerotic. The aortic valve is tri-cuspid. No aortic regurgitation is present. There is no aortic valvular stenosis. MITRAL VALVE The mitral valve is normal in structure. There is no evidence of mitral valve prolapse. There is no mitral valve regurgitation noted. TRICUSPID VALVE The tricuspid valve is normal in structure. There is trace tricuspid regurgitation. Right ventricular systolic pressure is estimated at less than 30 mmHg. There is no pulmonary hypertension. PULMONIC VALVE The pulmonic valve is not well visualized. There is no pulmonic valvular regurgitation. GREAT VESSELS The aortic root is normal in size. The IVC is normal in size and collapses >50% with inspiration. PERICARDIAL EFFUSION There is no pericardial effusion. <Conclusion> There is mild concentric left ventricular hypertrophy. Left ventricle systolic function is normal. The Ejection Fraction is 65-70%. Transmitral Doppler flow pattern is Grade I-abnormal relaxation pattern.
[2017-09-18] MEDS: niCARdipine IV 25 MG in Sodium Chloride 0.9% 240 ML IV SCH ×3 (01:20→08:09)
[2017-09-18 02:20] LABS: CALCIUM 7.9 mg/dl (8.6-10.4)
[2017-09-18 06:43] LABS: BASO % 0.3 % (0.0-2.0); LYMPH # 1.4 K/uL (1.0-4.3); LYMPH % 13.1 % (20.0-40.0); MEAN CELL VOLUME 83.1 fL (81.0-99.0); MEAN CORPUSCULAR HEMOGLOBIN 27.4 pg (27.0-31.0); MONO # 0.6 K/uL (0.0-0.8); MONO % 5.8 % (0.0-10.0); NEUT % 80.8 % (50.0-75.0); NRBC % 0.1 % (0.0-2.0); RBC 4.76 Mil/uL (3.80-5.20); RED CELL DISTRIBUTION WIDTH 14.7 % (11.5-14.5); WHITE BLOOD COUNT 11.1 K/uL (4.8-10.8)
[2017-09-18 06:58] LABS: ALB/GLOB RATIO 1.1 (1.0-2.1); ALBUMIN 3.5 g/dL (3.5-5.0); CALCIUM 8.3 mg/dl (8.6-10.4)
[2017-09-18] MEDS: Sodium Chloride 0.9% 1,000 ML IV SCH (08:09)
--- NOTE | 2017-09-18 09:18 | CT ---
PROCEDURE: CT HEAD WITHOUT CONTRAST. HISTORY: Evaluate intracranial bleed COMPARISON: None available. TECHNIQUE: Axial computed tomography images were obtained through the head/brain without intravenous contrast. Radiation dose: Total exam DLP = 1049.14 mGy-cm. This CT exam was performed using one or more of the following dose reduction techniques: Automated exposure control, adjustment of the mA and/or kV according to patient size, and/or use of iterative reconstruction technique. FINDINGS: HEMORRHAGE: There is interval progression in volume oates and decrease in size of known right basal ganglia/thalamic hematoma which now measures 2.3 x 2.0 cm (Axial plane). There is also intraventricular extension of hemorrhage. There is redemonstration of bilateral parietal convexity subarachnoid hemorrhage. There is 1.0 cm high attenuation area overlying the right lateral cerebellar hemisphere which is new since the prior examination. BRAIN: There is moderate vasogenic edema surrounding the hematoma and local regional mass effect with 7 mm midline shift from right to left. No evidence of herniation. VENTRICLES: Mild hydrocephalus. CALVARIUM: The skull base and calvarium are normal PARANASAL SINUSES: Predominantly clear. MASTOID AIR CELLS: Predominantly clear. OTHER FINDINGS: None. IMPRESSION: 1. Interval development of 10 mm focal hyperdensity along the right lateral cerebellar hemisphere which may represent cerebellar or tentorial subarachnoid hemorrhage. Short-term interval follow-up is recommended. 2. [place] and a wall lesion and interval mild decrease in size of known right basal ganglia/thalamic hematoma with intraventricular extension of hemorrhage, local regional mass effect, mild hydrocephalus and 7 mm midline shift from right to left. No herniation. 3. Redemonstration of bilateral parietal convexity subarachnoid hemorrhage. Important findings were discussed with on 09/18/2017 at 9:10 a.m.
--- NOTE | 2017-09-18 10:21 | CP.CCUPN ---
<Josefina Vasquez - Last Filed: 09/18/17 14:27> CCU Subjective - Physician Review Subjective (Free Text): 09/18/17 10:19 Patient seen and examined at bedside. Per nursing no acute events overnight. Patient opens eyes to verbal stimuli however appears more lethargic this morning. Patient is not moving her right arm and right leg as much today. Still with left sided hemiparalysis. Sent for repeat CT head this morning. Still on Cardene drip for BP control. CCU Objective - Vital Signs / Intake & Output Vital Signs (Last 4 hours): Vital Signs Temp Pulse Resp BP Pulse Ox 09/18/17 09:00 89 22 139/76 100 09/18/17 08:04 91 H 23 133/67 100 09/18/17 08:00 99.0 F 91 H 21 137/71 100 09/18/17 07:01 94 H 23 133/65 100 09/18/17 07:00 94 H 24 Intake and Output (Last 8hrs): Intake & Output 09/17/17 09/18/17 09/18/17 22:59 06:59 14:59 Intake Total 1200 1660 620 Output Total 232 272 79 Balance 968 1388 541 Intake: IV 65 335 115 Intake, IV Amount 1135 1325 465 Left Hand 200 250 0 Right Antecubital 135 275 165 Right Antecubital Y-site 800 800 300 Tube Feeding 40 Output: Urine 232 272 79 Urethral (Sahu) 232 272 79 - Physical Exam Other physical findings (Free Text): - Head Exam Head Exam: NORMAL INSPECTION Additional comments: NGT Tube in place - Eye Exam Eye Exam: absent: Nystagmus, Scleral icterus Pupil Exam: Miosis. absent: Fixed Additional comments: pupils reactive to light - ENT Exam ENT Exam: Mucous Membranes Moist - Respiratory Exam Respiratory Exam: Clear to PA & Lateral, NORMAL BREATHING PATTERN. absent: Rales, Rhonchi - Cardiovascular Exam Cardiovascular Exam: REGULAR RHYTHM, +S1, +S2 - GI/Abdominal Exam GI & Abdominal Exam: Normal Bowel Sounds, Soft. absent: Distended, Firm, Guarding, Rebound, Rigid, Tenderness - Neurological Exam Neurological exam: Alert Additional comments: Patient is awake, opens eyes to verbal stimuli, Right arm and right leg weaker today, not moving left arm or left leg - Medications Active Medications: Active Medications Generic Name Dose Route Start Last Admin Trade Name Freq PRN Reason Stop Dose Admin Nicardipine HCl 25 mg/ Sodium 250 mls @ 50 mls/hr 09/16/17 21:30 09/18/17 09: 45 Chloride IV 1 mg/hr .Q5H CORNEL 10 mls/hr Protocol Titration 5 MG/HR Levetiracetam 500 mg/ Sodium 105 mls @ 420 mls/hr 09/16/17 23:45 09/17/17 23: 00 Chloride IVPB 420 mls/hr Q12H CORNEL Administration Sodium Chloride 1,000 mls @ 100 mls/hr 09/16/17 23:45 09/18/17 08:09 Sodium Chloride 0.9% IV 100 mls/hr .Q10H CORNEL Administration Pantoprazole Sodium 40 mg 09/17/17 10:00 09/18/17 09:47 Protonix Inj IVP 40 mg DAILY CORNEL Administration Rosuvastatin Calcium 5 mg 09/17/17 22:00 09/17/17 22:40 Crestor PO 5 mg HS CORNEL Administration - Patient Studies Lab Studies: Lab Studies 09/18/17 09/18/17 09/18/17 Range/Units 06:34 06:34 05:26 WBC 11.1 H (4.8-10.8) K/uL RBC 4.76 (3.80-5.20) Mil/uL Hgb 13.0 (11.0-16.0) g/dL Hct 39.5 (34.0-47.0) % MCV 83.1 (81.0-99.0) fL MCH 27.4 (27.0-31.0) pg MCHC 33.0 (33.0-37.0) g/dL RDW 14.7 H (11.5-14.5) % Plt Count 172 (130-400) K/uL MPV 9.0 (7.2-11.7) fL Neut % (Auto) 80.8 H (50.0-75.0) % Lymph % (Auto) 13.1 L (20.0-40.0) % Jackson % (Auto) 5.8 (0.0-10.0) % Eos % (Auto) 0.0 (0.0-4.0) % Baso % (Auto) 0.3 (0.0-2.0) % Neut # (Auto) 9.0 H (1.8-7.0) K/uL Lymph # (Auto) 1.4 (1.0-4.3) K/uL Jackson # (Auto) 0.6 (0.0-0.8) K/uL Eos # (Auto) 0.0 (0.0-0.7) K/uL Baso # (Auto) 0.0 (0.0-0.2) K/uL Sodium 149 H (132-148) mmol/L Potassium 3.6 (3.6-5.2) mmol/L Chloride 115 H (98-107) mmol/L Carbon Dioxide 20 L (22-30) mmol/L Anion Gap 18 (10-20) BUN 29 H (7-17) mg/dL Creatinine 1.2 (0.7-1.2) mg/dL Est GFR ( Amer) 53 Est GFR (Non-Af Amer) 44 POC Glucose (mg/dL) 121 H (65-110) mg/dL Random Glucose 121 H (65-105) mg/dL Serum Osmolality (272-300) mosm/kg Calcium 8.3 L (8.6-10.4) mg/dl Phosphorus 2.7 (2.5-4.5) mg/dL Magnesium 2.0 (1.6-2.3) mg/dL Total Bilirubin 1.7 H (0.2-1.3) mg/dL AST 32 (14-36) U/L ALT 17 (9-52) U/L Alkaline Phosphatase 79 (38-126) U/L Total Protein 6.6 (6.3-8.3) g/dL Albumin 3.5 (3.5-5.0) g/dL Globulin 3.1 (2.2-3.9) gm/dL Albumin/Globulin Ratio 1.1 (1.0-2.1) Urine Color (YELLOW) Urine Clarity (Clear) Urine pH (5.0-8.0) Ur Specific [place] (1.003-1.030) Urine Protein (NEGATIVE) mg/dL Urine Glucose (UA) (Normal) mg/dL Urine Ketones (NEGATIVE) mg/dL Urine Blood (NEGATIVE) Urine Nitrate (NEGATIVE) Urine Bilirubin (NEGATIVE) Urine Urobilinogen (0.2-1.0) mg/dL Ur Leukocyte Esterase (Negative) Fausto/uL Urine WBC (Auto) (0-5) /hpf Urine RBC (Auto) (0-3) /hpf Ur Squamous Epith Cells (0-5) /hpf Urine Bacteria (<OCC) 09/18/17 09/18/17 09/18/17 Range/Units 02:00 02:00 00:15 WBC (4.8-10.8) K/uL RBC (3.80-5.20) Mil/uL Hgb (11.0-16.0) g/dL Hct (34.0-47.0) % MCV (81.0-99.0) fL MCH (27.0-31.0) pg MCHC (33.0-37.0) g/dL RDW (11.5-14.5) % Plt Count (130-400) K/uL MPV (7.2-11.7) fL Neut % (Auto) (50.0-75.0) % Lymph % (Auto) (20.0-40.0) % Jackson % (Auto) (0.0-10.0) % Eos % (Auto) (0.0-4.0) % Baso % (Auto) (0.0-2.0) % Neut # (Auto) (1.8-7.0) K/uL Lymph # (Auto) (1.0-4.3) K/uL Jackson # (Auto) (0.0-0.8) K/uL Eos # (Auto) (0.0-0.7) K/uL Baso # (Auto) (0.0-0.2) K/uL Sodium 156 H (132-148) mmol/L Potassium 3.4 L (3.6-5.2) mmol/L Chloride 123 H (98-107) mmol/L Carbon Dioxide 21 L (22-30) mmol/L Anion Gap 15 (10-20) BUN 26 H (7-17) mg/dL Creatinine 1.2 (0.7-1.2) mg/dL Est GFR ( Amer) 53 Est GFR (Non-Af Amer) 44 POC Glucose (mg/dL) 117 H (65-110) mg/dL Random Glucose 143 H (65-105) mg/dL Serum Osmolality 339 H (272-300) mosm/kg Calcium 7.9 L (8.6-10.4) mg/dl Phosphorus (2.5-4.5) mg/dL Magnesium (1.6-2.3) mg/dL Total Bilirubin (0.2-1.3) mg/dL AST (14-36) U/L ALT (9-52) U/L Alkaline Phosphatase (38-126) U/L Total Protein (6.3-8.3) g/dL Albumin (3.5-5.0) g/dL Globulin (2.2-3.9) gm/dL Albumin/Globulin Ratio (1.0-2.1) Urine Color (YELLOW) Urine Clarity (Clear) Urine pH (5.0-8.0) Ur Specific [place] (1.003-1.030) Urine Protein (NEGATIVE) mg/dL Urine Glucose (UA) (Normal) mg/dL Urine Ketones (NEGATIVE) mg/dL Urine Blood (NEGATIVE) Urine Nitrate (NEGATIVE) Urine Bilirubin (NEGATIVE) Urine Urobilinogen (0.2-1.0) mg/dL Ur Leukocyte Esterase (Negative) Fausto/uL Urine WBC (Auto) (0-5) /hpf Urine RBC (Auto) (0-3) /hpf Ur Squamous Epith Cells (0-5) /hpf Urine Bacteria (<OCC) 09/17/17 09/17/17 09/17/17 Range/Units 17:40 11:27 11:08 WBC (4.8-10.8) K/uL RBC (3.80-5.20) Mil/uL Hgb (11.0-16.0) g/dL Hct (34.0-47.0) % MCV (81.0-99.0) fL MCH (27.0-31.0) pg MCHC (33.0-37.0) g/dL RDW (11.5-14.5) % Plt Count (130-400) K/uL MPV (7.2-11.7) fL Neut % (Auto) (50.0-75.0) % Lymph % (Auto) (20.0-40.0) % Jackson % (Auto) (0.0-10.0) % Eos % (Auto) (0.0-4.0) % Baso % (Auto) (0.0-2.0) % Neut # (Auto) (1.8-7.0) K/uL Lymph # (Auto) (1.0-4.3) K/uL Jackson # (Auto) (0.0-0.8) K/uL Eos # (Auto) (0.0-0.7) K/uL Baso # (Auto) (0.0-0.2) K/uL Sodium (132-148) mmol/L Potassium (3.6-5.2) mmol/L Chloride (98-107) mmol/L Carbon Dioxide (22-30) mmol/L Anion Gap (10-20) BUN (7-17) mg/dL Creatinine (0.7-1.2) mg/dL Est GFR ( Amer) Est GFR (Non-Af Amer) POC Glucose (mg/dL) 105 119 H (65-110) mg/dL Random Glucose (65-105) mg/dL Serum Osmolality (272-300) mosm/kg Calcium (8.6-10.4) mg/dl Phosphorus (2.5-4.5) mg/dL Magnesium (1.6-2.3) mg/dL Total Bilirubin (0.2-1.3) mg/dL AST (14-36) U/L ALT (9-52) U/L Alkaline Phosphatase (38-126) U/L Total Protein (6.3-8.3) g/dL Albumin (3.5-5.0) g/dL Globulin (2.2-3.9) gm/dL Albumin/Globulin Ratio (1.0-2.1) Urine Color Yellow (YELLOW) Urine Clarity Hazy (Clear) Urine pH 5.0 (5.0-8.0) Ur Specific [place] 1.015 (1.003-1.030) Urine Protein 2+ H (NEGATIVE) mg/dL Urine Glucose (UA) Normal (Normal) mg/dL Urine Ketones Trace (NEGATIVE) mg/dL Urine Blood 3+ H (NEGATIVE) Urine Nitrate Negative (NEGATIVE) Urine Bilirubin Negative (NEGATIVE) Urine Urobilinogen Normal (0.2-1.0) mg/dL Ur Leukocyte Esterase 1+ H (Negative) Fausto/uL Urine WBC (Auto) 19 H (0-5) /hpf Urine RBC (Auto) 336 H (0-3) /hpf Ur Squamous Epith Cells 1 (0-5) /hpf Urine Bacteria Rare (<OCC) Laboratory Results - last 24 hr 09/17/17 09/17/17 09/17/17 11:08 11:27 17:40 WBC RBC Hgb Hct MCV MCH MCHC RDW Plt Count MPV Neut % (Auto) Lymph % (Auto) Jackson % (Auto) Eos % (Auto) Baso % (Auto) Neut # (Auto) Lymph # (Auto) Jackson # (Auto) Eos # (Auto) Baso # (Auto) Sodium Potassium Chloride Carbon Dioxide Anion Gap BUN Creatinine Est GFR ( Amer) Est GFR (Non-Af Amer) POC Glucose (mg/dL) 119 H 105 Random Glucose Serum Osmolality Calcium Phosphorus Magnesium Total Bilirubin AST ALT Alkaline Phosphatase Total Protein Albumin Globulin Albumin/Globulin Ratio Urine Color Yellow Urine Clarity Hazy Urine pH 5.0 Ur Specific [place] 1.015 Urine Protein 2+ H Urine Glucose (UA) Normal Urine Ketones Trace Urine Blood 3+ H Urine Nitrate Negative Urine Bilirubin Negative Urine Urobilinogen Normal Ur Leukocyte Esterase 1+ H Urine WBC (Auto) 19 H Urine RBC (Auto) 336 H Ur Squamous Epith Cells 1 Urine Bacteria Rare 09/18/17 09/18/17 09/18/17 00:15 02:00 02:00 WBC RBC Hgb Hct MCV MCH MCHC RDW Plt Count MPV Neut % (Auto) Lymph % (Auto) Jackson % (Auto) Eos % (Auto) Baso % (Auto) Neut # (Auto) Lymph # (Auto) Jackson # (Auto) Eos # (Auto) Baso # (Auto) Sodium 156 H Potassium 3.4 L Chloride 123 H Carbon Dioxide 21 L Anion Gap 15 BUN 26 H Creatinine 1.2 Est GFR ( Amer) 53 Est GFR (Non-Af Amer) 44 POC Glucose (mg/dL) 117 H Random Glucose 143 H Serum Osmolality 339 H Calcium 7.9 L Phosphorus Magnesium Total Bilirubin AST ALT Alkaline Phosphatase Total Protein Albumin Globulin Albumin/Globulin Ratio Urine Color Urine Clarity Urine pH Ur Specific [place] Urine Protein Urine Glucose (UA) Urine Ketones Urine Blood Urine Nitrate Urine Bilirubin Urine Urobilinogen Ur Leukocyte Esterase Urine WBC (Auto) Urine RBC (Auto) Ur Squamous Epith Cells Urine Bacteria 09/18/17 09/18/17 09/18/17 05:26 06:34 06:34 WBC 11.1 H RBC 4.76 Hgb 13.0 Hct 39.5 MCV 83.1 MCH 27.4 MCHC 33.0 RDW 14.7 H Plt Count 172 MPV 9.0 Neut % (Auto) 80.8 H Lymph % (Auto) 13.1 L Jackson % (Auto) 5.8 Eos % (Auto) 0.0 Baso % (Auto) 0.3 Neut # (Auto) 9.0 H Lymph # (Auto) 1.4 Jackson # (Auto) 0.6 Eos # (Auto) 0.0 Baso # (Auto) 0.0 Sodium 149 H Potassium 3.6 Chloride 115 H Carbon Dioxide 20 L Anion Gap 18 BUN 29 H Creatinine 1.2 Est GFR ( Amer) 53 Est GFR (Non-Af Amer) 44 POC Glucose (mg/dL) 121 H Random Glucose 121 H Serum Osmolality Calcium 8.3 L Phosphorus 2.7 Magnesium 2.0 Total Bilirubin 1.7 H AST 32 ALT 17 Alkaline Phosphatase 79 Total Protein 6.6 Albumin 3.5 Globulin 3.1 Albumin/Globulin Ratio 1.1 Urine Color Urine Clarity Urine pH Ur Specific [place] Urine Protein Urine Glucose (UA) Urine Ketones Urine Blood Urine Nitrate Urine Bilirubin Urine Urobilinogen Ur Leukocyte Esterase Urine WBC (Auto) Urine RBC (Auto) Ur Squamous Epith Cells Urine Bacteria EKG/Cardiology Studies: Cardiology / EKG Studies 09/17/17 09:41 ELECTROCARDIOGRAM Stat Comment: Mode Of Transportation: Reason For Exam: qtc prolongation Fingerstick Blood Sugar Results: 121 Critical Care Progress Note - Nutrition Nutrition: Nutrition Category Date Time Status NPO Diet [DIET] Diets 09/17/17 Lunch Active Assessment/Plan - Assessment and Plan (Free Text) Assessment: Patient is a 76 year old female with past medical history of hypertension, dyslipidemia, vitamin d deficiency presented to the hospital after being found at home on the floor for unknown amount of time. CT head on arrival showed right basal ganglia bleeding with surrounding edema, Right posterior horn lateral ventricle bleeding. Neurosurgery on board. Admitted to the ICU for further monitoring Neurology: -Patient opens eyes to verbal stimuli -Very lethargic, not following commands -Per the family, patient has had TIA; she had left sided weakness but was able to ambulate with assistance and performed her ADLs independently -Repeat CT head 09/18: Interval development of 10mm focal hyperdensity along the right lateral cerebellar hemisphere which may represent cerebellar or tentorial subarachnoid hemorrhage. [place] and a wall lesion and interval mild decrease in size of known right basal ganglia/thalamic hematoma with intraventricular extension of hemorrhage, local regional mass effect, mild hydrocephalus and 7 mm midline shift from right to left. No herniation -Per Dr Spencer, No neurosurgical intervention at this time -Cervical spine CT showed no acute findings -Seizure ppx: Continue Keppra 500mg IV Q12H -Seizure precautions, aspiration precautions -Neuro checks q2 hours -Neurology on consult, help appreciated -Neurosurgery on consult, help appreciated -Patient to be transferred to [facility] for further management Cardiovascular: -BP 218/144 on admission, Hypertensive crisis -Patient on Cardene drip for BP control, goal SBP 140-160s -Carotid duplex showed no acute findings -Echocardiogram: LVEF 65-70%, mild concentric LVH, normal left ventricular systolic function -EKG in the ED showed prolonged QTc interval, repeat EKG also showed prolonged QTc -NSTEMI: Troponin elevated 0.1410 -> 0.155 -History of dyslipidemia on lipitor 10mg PO daily at home -Continue Crestor 5mg PO HS GI: -Patient is NPO -Swallow evaluation deferred as patient is lethargic -Started on Tube feeds via NGT -Rn Integrity referral placed for tube feed goal -Protonix 40mg IVP daily Renal: -Sahu draining to gravity -Monitor I/Os -NS at 100cc/hr -Monitor electrolytes -UA and urine culture ordered Heme/Onc: -Leukocytosis 15.9 -> 11, likely reactive -Monitor serial CBCs Infectious Disease: -Urine culture showing no growth GI/DVT ppx: -Protonix 40mg IVP daily -VTE contraindicated secondary to intracranial bleed -SCDs Plan discussed with Dr Duke <Calvin Duke - Last Filed: 09/18/17 15:47> CCU Objective - Vital Signs / Intake & Output Vital Signs (Last 4 hours): Vital Signs Temp Pulse Resp BP Pulse Ox 09/18/17 13:01 88 23 154/75 H 100 09/18/17 13:00 90 23 100 09/18/17 12:00 99.1 F 94 H 22 165/83 H 99 Intake and Output (Last 8hrs): Intake & Output 09/18/17 09/18/17 09/18/17 06:59 14:59 22:59 Intake Total 1660 1230 Output Total 272 174 Balance 1388 1056 Weight 185 lb 9.6 oz Intake: IV 335 125 Intake, IV Amount 1325 985 Left Hand 250 0 Right Antecubital 275 185 Right Antecubital Y-site 800 800 Tube Feeding 120 Output: Urine 272 174 Urethral (Sahu) 272 174 - Patient Studies Lab Studies: Microbiology Studies 09/16/17 23:15 MRSA Culture (Admit) - Final Nose MRSA NOT DETECTED 09/17/17 09:41 Urine Culture - Final Urine,Sahu No Growth (<1,000 CFU/ML) Lab Studies 09/18/17 09/18/17 09/18/17 Range/Units 11:29 06:34 06:34 WBC 11.1 H (4.8-10.8) K/uL RBC 4.76 (3.80-5.20) Mil/uL Hgb 13.0 (11.0-16.0) g/dL Hct 39.5 (34.0-47.0) % MCV 83.1 (81.0-99.0) fL MCH 27.4 (27.0-31.0) pg MCHC 33.0 (33.0-37.0) g/dL RDW 14.7 H (11.5-14.5) % Plt Count 172 (130-400) K/uL MPV 9.0 (7.2-11.7) fL Neut % (Auto) 80.8 H (50.0-75.0) % Lymph % (Auto) 13.1 L (20.0-40.0) % Jackson % (Auto) 5.8 (0.0-10.0) % Eos % (Auto) 0.0 (0.0-4.0) % Baso % (Auto) 0.3 (0.0-2.0) % Neut # (Auto) 9.0 H (1.8-7.0) K/uL Lymph # (Auto) 1.4 (1.0-4.3) K/uL Jackson # (Auto) 0.6 (0.0-0.8) K/uL Eos # (Auto) 0.0 (0.0-0.7) K/uL Baso # (Auto) 0.0 (0.0-0.2) K/uL Sodium 149 H (132-148) mmol/L Potassium 3.6 (3.6-5.2) mmol/L Chloride 115 H (98-107) mmol/L Carbon Dioxide 20 L (22-30) mmol/L Anion Gap 18 (10-20) BUN 29 H (7-17) mg/dL Creatinine 1.2 (0.7-1.2) mg/dL Est GFR ( Amer) 53 Est GFR (Non-Af Amer) 44 POC Glucose (mg/dL) 117 H (65-110) mg/dL Random Glucose 121 H (65-105) mg/dL Serum Osmolality (272-300) mosm/kg Calcium 8.3 L (8.6-10.4) mg/dl Phosphorus 2.7 (2.5-4.5) mg/dL Magnesium 2.0 (1.6-2.3) mg/dL Total Bilirubin 1.7 H (0.2-1.3) mg/dL AST 32 (14-36) U/L ALT 17 (9-52) U/L Alkaline Phosphatase 79 (38-126) U/L Total Protein 6.6 (6.3-8.3) g/dL Albumin 3.5 (3.5-5.0) g/dL Globulin 3.1 (2.2-3.9) gm/dL Albumin/Globulin Ratio 1.1 (1.0-2.1) 09/18/17 09/18/17 09/18/17 Range/Units 05:26 02:00 02:00 WBC (4.8-10.8) K/uL RBC (3.80-5.20) Mil/uL Hgb (11.0-16.0) g/dL Hct (34.0-47.0) % MCV (81.0-99.0) fL MCH (27.0-31.0) pg MCHC (33.0-37.0) g/dL RDW (11.5-14.5) % Plt Count (130-400) K/uL MPV (7.2-11.7) fL Neut % (Auto) (50.0-75.0) % Lymph % (Auto) (20.0-40.0) % Jackson % (Auto) (0.0-10.0) % Eos % (Auto) (0.0-4.0) % Baso % (Auto) (0.0-2.0) % Neut # (Auto) (1.8-7.0) K/uL Lymph # (Auto) (1.0-4.3) K/uL Jackson # (Auto) (0.0-0.8) K/uL Eos # (Auto) (0.0-0.7) K/uL Baso # (Auto) (0.0-0.2) K/uL Sodium 156 H (132-148) mmol/L Potassium 3.4 L (3.6-5.2) mmol/L Chloride 123 H (98-107) mmol/L Carbon Dioxide 21 L (22-30) mmol/L Anion Gap 15 (10-20) BUN 26 H (7-17) mg/dL Creatinine 1.2 (0.7-1.2) mg/dL Est GFR ( Amer) 53 Est GFR (Non-Af Amer) 44 POC Glucose (mg/dL) 121 H (65-110) mg/dL Random Glucose 143 H (65-105) mg/dL Serum Osmolality 339 H (272-300) mosm/kg Calcium 7.9 L (8.6-10.4) mg/dl Phosphorus (2.5-4.5) mg/dL Magnesium (1.6-2.3) mg/dL Total Bilirubin (0.2-1.3) mg/dL AST (14-36) U/L ALT (9-52) U/L Alkaline Phosphatase (38-126) U/L Total Protein (6.3-8.3) g/dL Albumin (3.5-5.0) g/dL Globulin (2.2-3.9) gm/dL Albumin/Globulin Ratio (1.0-2.1) 09/18/17 09/17/17 Range/Units 00:15 17:40 WBC (4.8-10.8) K/uL RBC (3.80-5.20) Mil/uL Hgb (11.0-16.0) g/dL Hct (34.0-47.0) % MCV (81.0-99.0) fL MCH (27.0-31.0) pg MCHC (33.0-37.0) g/dL RDW (11.5-14.5) % Plt Count (130-400) K/uL MPV (7.2-11.7) fL Neut % (Auto) (50.0-75.0) % Lymph % (Auto) (20.0-40.0) % Jackson % (Auto) (0.0-10.0) % Eos % (Auto) (0.0-4.0) % Baso % (Auto) (0.0-2.0) % Neut # (Auto) (1.8-7.0) K/uL Lymph # (Auto) (1.0-4.3) K/uL Jackson # (Auto) (0.0-0.8) K/uL Eos # (Auto) (0.0-0.7) K/uL Baso # (Auto) (0.0-0.2) K/uL Sodium (132-148) mmol/L Potassium (3.6-5.2) mmol/L Chloride (98-107) mmol/L Carbon Dioxide (22-30) mmol/L Anion Gap (10-20) BUN (7-17) mg/dL Creatinine (0.7-1.2) mg/dL Est GFR ( Amer) Est GFR (Non-Af Amer) POC Glucose (mg/dL) 117 H 105 (65-110) mg/dL Random Glucose (65-105) mg/dL Serum Osmolality (272-300) mosm/kg Calcium (8.6-10.4) mg/dl Phosphorus (2.5-4.5) mg/dL Magnesium (1.6-2.3) mg/dL Total Bilirubin (0.2-1.3) mg/dL AST (14-36) U/L ALT (9-52) U/L Alkaline Phosphatase (38-126) U/L Total Protein (6.3-8.3) g/dL Albumin (3.5-5.0) g/dL Globulin (2.2-3.9) gm/dL Albumin/Globulin Ratio (1.0-2.1) Laboratory Results - last 24 hr 09/17/17 09/18/17 09/18/17 17:40 00:15 02:00 WBC RBC Hgb Hct MCV MCH MCHC RDW Plt Count MPV Neut % (Auto) Lymph % (Auto) Jackson % (Auto) Eos % (Auto) Baso % (Auto) Neut # (Auto) Lymph # (Auto) Jackson # (Auto) Eos # (Auto) Baso # (Auto) Sodium 156 H Potassium 3.4 L Chloride 123 H Carbon Dioxide 21 L Anion Gap 15 BUN 26 H Creatinine 1.2 Est GFR ( Amer) 53 Est GFR (Non-Af Amer) 44 POC Glucose (mg/dL) 105 117 H Random Glucose 143 H Serum Osmolality Calcium 7.9 L Phosphorus Magnesium Total Bilirubin AST ALT Alkaline Phosphatase Total Protein Albumin Globulin Albumin/Globulin Ratio 09/18/17 09/18/17 09/18/17 02:00 05:26 06:34 WBC 11.1 H RBC 4.76 Hgb 13.0 Hct 39.5 MCV 83.1 MCH 27.4 MCHC 33.0 RDW 14.7 H Plt Count 172 MPV 9.0 Neut % (Auto) 80.8 H Lymph % (Auto) 13.1 L Jackson % (Auto) 5.8 Eos % (Auto) 0.0 Baso % (Auto) 0.3 Neut # (Auto) 9.0 H Lymph # (Auto) 1.4 Jackson # (Auto) 0.6 Eos # (Auto) 0.0 Baso # (Auto) 0.0 Sodium Potassium Chloride Carbon Dioxide Anion Gap BUN Creatinine Est GFR ( Amer) Est GFR (Non-Af Amer) POC Glucose (mg/dL) 121 H Random Glucose Serum Osmolality 339 H Calcium Phosphorus Magnesium Total Bilirubin AST ALT Alkaline Phosphatase Total Protein Albumin Globulin Albumin/Globulin Ratio 09/18/17 09/18/17 06:34 11:29 WBC RBC Hgb Hct MCV MCH MCHC RDW Plt Count MPV Neut % (Auto) Lymph % (Auto) Jackson % (Auto) Eos % (Auto) Baso % (Auto) Neut # (Auto) Lymph # (Auto) Jackson # (Auto) Eos # (Auto) Baso # (Auto) Sodium 149 H Potassium 3.6 Chloride 115 H Carbon Dioxide 20 L Anion Gap 18 BUN 29 H Creatinine 1.2 Est GFR ( Amer) 53 Est GFR (Non-Af Amer) 44 POC Glucose (mg/dL) 117 H Random Glucose 121 H Serum Osmolality Calcium 8.3 L Phosphorus 2.7 Magnesium 2.0 Total Bilirubin 1.7 H AST 32 ALT 17 Alkaline Phosphatase 79 Total Protein 6.6 Albumin 3.5 Globulin 3.1 Albumin/Globulin Ratio 1.1 Critical Care Progress Note - Nutrition Nutrition: Nutrition Category Date Time Status NPO Diet [DIET] Diets 09/17/17 Lunch Active Attending/Attestation - Attestation I have personally seen and examined this patient.: Yes I have fully participated in the care of the patient.: Yes I have reviewed all pertinent clinical information: Yes Notes (Text): 09/18/17 15:37 I have seen and examined the patient. Medical records, lab studies, and imaging were reviewed by me and a management plan was formulated on multidisciplinary rounds with resident Dr. Vasquez. I agree with their documented assessment and plan. 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 This is an indication for IVD placement to relieve presumed elevated ICP, which would correlate with her worsening clinical exam. Obtained second opinion neurosurgical consult, who agreed with transferring to [facility] for neurosurgical intervention. Patient transferred to [facility]. Critical Care Time 35 minutes. Multi-disciplinary rounds were performed with house staff, nursing, speech therapy, respiratory therapy, pharmacy and nutrition with integrated input from the primary team/attending and other consulting services. The documented time is cumulative and includes review of patient data/exams/labs/chart review and examination of the patient on rounds and throughout the day; time is exclusive of any procedures or teaching time.
--- NOTE | 2017-09-18 10:23 | CP.PCM.PN ---
Subjective - Date & Time of Evaluation Date of Evaluation: 09/18/17 Time of Evaluation: 10:22 - Subjective Subjective: latest ct reviewed There is redistribution of intraventricular and subarchnoid blood from prior study This is not problamatic No further increase in vent size, and vents look like they are clearing from blood no surgical intervention indicated Objective - Vital Signs/Intake and Output Vital Signs (last 24 hours): Temp Pulse Resp BP Pulse Ox 99.0 F 89 22 139/76 100 09/18/17 08:00 09/18/17 09:00 09/18/17 09:00 09/18/17 09:00 09/18/17 09:00 Intake and Output: 09/18/17 09/18/17 06:59 18:59 Intake Total 2400 620 Output Total 399 79 Balance 2000 541 - Medications Medications: Current Medications Nicardipine HCl 25 mg/ Sodium (Chloride) 250 mls @ 50 mls/hr IV .Q5H CORNEL; 5 MG/ HR PRN Reason: Protocol Last Titration: 09/18/17 09:45 Dose: 1 mg/hr, 10 mls/hr Levetiracetam 500 mg/ Sodium (Chloride) 105 mls @ 420 mls/hr IVPB Q12H CORNEL Last Admin: 09/17/17 23:00 Dose: 420 mls/hr Sodium Chloride (Sodium Chloride 0.9%) 1,000 mls @ 100 mls/hr IV .Q10H CORNEL Last Admin: 09/18/17 08:09 Dose: 100 mls/hr Pantoprazole Sodium (Protonix Inj) 40 mg IVP DAILY CORNEL Last Admin: 09/18/17 09:47 Dose: 40 mg Rosuvastatin Calcium (Crestor) 5 mg PO HS CORNEL Last Admin: 09/17/17 22:40 Dose: 5 mg - Labs Labs: 09/18/17 06:34 09/18/17 06:34 PT 10.8 SECONDS (9.7-12.2) 09/16/17 20:47 INR 1.0 09/16/17 20:47 APTT 25 SECONDS (21-34) 09/16/17 20:47
[2017-09-18] MEDS: levETIRAcetam 500 MG in Sodium Chloride 0.9% 100 ML IVPB SCH (11:15)
[2017-09-18 12:17] VITALS: TEMP 99.1; O2SAT 100
--- NOTE | 2017-09-18 12:54 | CP.PCM.DIS ---
Provider - Provider Date of Admission: 09/16/17 21:36 Attending physician: Miranda Godoy DO Primary care physician: Dr. Alberts Consults: Dr. Rossy Mera Time Spent in preparation of Discharge (in minutes): 31 Diagnosis - Discharge Diagnosis (1) Intracerebral bleed Status: Acute Comment: transferred to [facility] for neurosurgery intensive care unit. case discussed [facility] ICU and [place] for neurosurgery intervention (2) Hydrocephalus due to abnormality of flow cerebrospinal fluid Status: Acute Comment: transferred to [facility] for neurosurgery intensive care unit. case discussed [facility] ICU and [place] for neurosurgery intervention (3) Hypertensive crisis Status: Acute Comment: on cardene drip (4) NSTEMI (non-ST elevated myocardial infarction) Status: Acute (5) Dementia Status: Chronic (6) Abnormal finding on urinalysis Status: Ruled-out Comment: urine culture: no growth (7) Prolonged Q-T interval on ECG Status: Acute (8) Atherosclerotic cardiovascular disease Status: Chronic (9) Degenerative joint disease Status: Chronic (10) Chronic kidney disease Status: Chronic (11) Prophylactic measure Status: Acute Hospital Course - Lab Results Lab Results: Micro Results 09/16/17 23:15 Nose MRSA Culture (Admit) - Final MRSA NOT DETECTED 09/17/17 09:41 Urine,Sahu Urine Culture - Final No Growth (<1,000 CFU/ML) Most Recent Lab Values WBC 11.1 K/uL (4.8-10.8) H 09/18/17 06:34 RBC 4.76 Mil/uL (3.80-5.20) 09/18/17 06:34 Hgb 13.0 g/dL (11.0-16.0) 09/18/17 06:34 Hct 39.5 % (34.0-47.0) 09/18/17 06:34 MCV 83.1 fL (81.0-99.0) 09/18/17 06:34 MCH 27.4 pg (27.0-31.0) 09/18/17 06:34 MCHC 33.0 g/dL (33.0-37.0) 09/18/17 06:34 RDW 14.7 % (11.5-14.5) H 09/18/17 06:34 Plt Count 172 K/uL (130-400) 09/18/17 06:34 MPV 9.0 fL (7.2-11.7) 09/18/17 06:34 Neut % (Auto) 80.8 % (50.0-75.0) H 09/18/17 06:34 Lymph % (Auto) 13.1 % (20.0-40.0) L 09/18/17 06:34 [place] % (Auto) 5.8 % (0.0-10.0) 09/18/17 06:34 Eos % (Auto) 0.0 % (0.0-4.0) 09/18/17 06:34 Baso % (Auto) 0.3 % (0.0-2.0) 09/18/17 06:34 Neut # (Auto) 9.0 K/uL (1.8-7.0) H 09/18/17 06:34 Lymph # (Auto) 1.4 K/uL (1.0-4.3) 09/18/17 06:34 [place] # (Auto) 0.6 K/uL (0.0-0.8) 09/18/17 06:34 Eos # (Auto) 0.0 K/uL (0.0-0.7) 09/18/17 06:34 Baso # (Auto) 0.0 K/uL (0.0-0.2) 09/18/17 06:34 Neutrophils % (Manual) 88 % (50-75) H 09/16/17 20:47 Band Neutrophils % 1 % (0-2) 09/16/17 20:47 Lymphocytes % (Manual) 6 % (20-40) L 09/16/17 20:47 Monocytes % (Manual) 5 % (0-10) 09/16/17 20:47 Platelet Estimate Normal (NORMAL) 09/16/17 20:47 PT 10.8 SECONDS (9.7-12.2) 09/16/17 20:47 INR 1.0 09/16/17 20:47 APTT 25 SECONDS (21-34) 09/16/17 20:47 Sodium 149 mmol/L (132-148) H 09/18/17 06:34 Potassium 3.6 mmol/L (3.6-5.2) 09/18/17 06:34 Chloride 115 mmol/L (98-107) H 09/18/17 06:34 Carbon Dioxide 20 mmol/L (22-30) L 09/18/17 06:34 Anion Gap 18 (10-20) 09/18/17 06:34 BUN 29 mg/dL (7-17) H 09/18/17 06:34 Creatinine 1.2 mg/dL (0.7-1.2) 09/18/17 06:34 Est GFR ( Amer) 53 09/18/17 06:34 Est GFR (Non-Af Amer) 44 09/18/17 06:34 POC Glucose (mg/dL) 117 mg/dL (65-110) H 09/18/17 11:29 Random Glucose 121 mg/dL (65-105) H 09/18/17 06:34 Hemoglobin A1c 5.3 % (4.2-6.5) 09/16/17 20:47 Serum Osmolality 339 mosm/kg (272-300) H 09/18/17 02:00 Calcium 8.3 mg/dl (8.6-10.4) L 09/18/17 06:34 Phosphorus 2.7 mg/dL (2.5-4.5) 09/18/17 06:34 Magnesium 2.0 mg/dL (1.6-2.3) 09/18/17 06:34 Iron 41 ug/dL (37-170) 09/17/17 06:24 TIBC 203 ug/dL (250-450) L 09/17/17 06:24 % Saturation 20 (20-55) 09/17/17 06:24 Total Bilirubin 1.7 mg/dL (0.2-1.3) H 09/18/17 06:34 AST 32 U/L (14-36) 09/18/17 06:34 ALT 17 U/L (9-52) 09/18/17 06:34 Alkaline Phosphatase 79 U/L (38-126) 09/18/17 06:34 Troponin I 0.1550 ng/mL (0.00-0.120) H* 09/17/17 06:24 Total Protein 6.6 g/dL (6.3-8.3) 09/18/17 06:34 Albumin 3.5 g/dL (3.5-5.0) 09/18/17 06:34 Globulin 3.1 gm/dL (2.2-3.9) 09/18/17 06:34 Albumin/Globulin Ratio 1.1 (1.0-2.1) 09/18/17 06:34 Triglycerides 88 mg/dL (0-149) 09/16/17 20:47 Cholesterol 243 mg/dL (0-199) H 09/16/17 20:47 LDL Cholesterol Direct 117 mg/dL (0-129) 09/16/17 20:47 HDL Cholesterol 99 mg/dL (30-70) H 09/16/17 20:47 Urine Color Yellow (YELLOW) 09/17/17 11:08 Urine Clarity Hazy (Clear) 09/17/17 11:08 Urine pH 5.0 (5.0-8.0) 09/17/17 11:08 Ur Specific [place] 1.015 (1.003-1.030) 09/17/17 11:08 Urine Protein 2+ mg/dL (NEGATIVE) H 09/17/17 11:08 Urine Glucose (UA) Normal mg/dL (Normal) 09/17/17 11:08 Urine Ketones Trace mg/dL (NEGATIVE) 09/17/17 11:08 Urine Blood 3+ (NEGATIVE) H 09/17/17 11:08 Urine Nitrate Negative (NEGATIVE) 09/17/17 11:08 Urine Bilirubin Negative (NEGATIVE) 09/17/17 11:08 Urine Urobilinogen Normal mg/dL (0.2-1.0) 09/17/17 11:08 Ur Leukocyte Esterase 1+ Fausto/uL (Negative) H 09/17/17 11:08 Urine WBC (Auto) 19 /hpf (0-5) H 09/17/17 11:08 Urine RBC (Auto) 336 /hpf (0-3) H 09/17/17 11:08 Ur Squamous Epith Cells 1 /hpf (0-5) 09/17/17 11:08 Urine Bacteria Rare (<OCC) 09/17/17 11:08 Blood Type O POSITIVE 09/16/17 20:47 Antibody Screen Negative 09/16/17 20:47 Discharge Exam - Head Exam Head Exam: NORMAL INSPECTION Additional comments: NGT Tube, Appears hydrated compared to yesterday Weaker speaks few words will monitor you with her eyes - Eye Exam Eye Exam: absent: Nystagmus, Scleral icterus Pupil Exam: Miosis. absent: Fixed Additional comments: reactive to light, patient's tracks with person light, constrict but mild reactive responsive to name - ENT Exam ENT Exam: Mucous Membranes Moist - Respiratory Exam Respiratory Exam: Clear to PA & Lateral, NORMAL BREATHING PATTERN. absent: Rales, Rhonchi - Cardiovascular Exam Cardiovascular Exam: REGULAR RHYTHM, +S1, +S2 - GI/Abdominal Exam GI & Abdominal Exam: Normal Bowel Sounds, Soft. absent: Distended, Firm, Guarding, Rebound, Rigid, Tenderness - Neurological Exam Neurological exam: Alert Additional comments: Patient is awake, speaking few words, weak Neuro: Right upper extremity: weaker compared to yesterday Right lower extremity: weaker compared to yesterday Left upper extremity: unable to move Left lower extremity: unable to move, nor bend at the knee Negative [place] b/l Discharge Plan - Follow Up Plan Condition: CRITICAL Disposition: Trans to Other Acute Care [facility] Clinical Quality Measures - CQM - Stroke Antithrombotic Prescribed: Medical Contraindication Present Contranindication/Reason for not providing: Risk for Bleeding Anticoagulation Prescribed for Atrial Flutter, Atrial Fibrillation and History of:: Not Applicable Attending/Attestation - Attestation I have personally seen and examined this patient.: Yes I have fully participated in the care of the patient.: Yes I have reviewed all pertinent clinical information, including history, physical exam and plan: Yes Notes (Text): (1) Intracerebral bleed Hydrocephalus Assessment & Plan: Ct Head (09/17/17): 3 cm right basal ganglia hyperdense acute intraparenchymal hemorrhage with extension into right lateral ventricle and occipital horn with minimal hemorrhage in the left occipital horn. 6mm of leftward midline shift. CT Head (09/17/17): Re-demonstrated is a right posteromedial basal ganglia/ thalamic hemorrhage that has dissected into the ventricular system as above. Ventricles appear slightly increased in size. Small amount of subarachnoid hemorrhage also seen in the posterior temporal regions bilaterally. Extensive significant chronic white matter ischemic changes. Moderate volume loss. CT Head (09/18/17): interval development of 10mm focal hyperdensity along the right lateral cerebellar hemisphere which may represent cerebellar or tentorial subarachnoid hemorrhage. Short-term follow-up is recommended. [place] and wall lesion and interval mild decrease in size of known right basal ganglia/ thalamic hematoma with intraventricular extension of hemorrhage, local regional mass effect, mild Hydrocephalous, 7mm midline shift from right to left. No herniation. Redemonstration of bilateral pairetal convexity subarachnoid hemorrhage. No chemical anticoagulation Neurology (Dr. Blair) on case-->help appreciated Neurosurgery (Dr. Walker) on the case-->help appreciated Nicardipine drip Keppra 500mg IVPB Q12H NS 100cc/hr A1c: 5.3 Lipid Panel: T, Cholestrol: 243, LDL: 117, HDL: 99 Crestor 5mg PO qHS Patient to transferred to [facility]. Case discussed ICU and neurosurgery at [facility] [place]. given worsening neuro status and indication for IVP placement. Right lower and upper extremity are more weaker compared to yesterday and worsening CT scan. Family (Patient's brother Tee Rodríguez agrees to transfer). Patient accepted to [facility] [place], accepted by neurosurgery team, and awaiting bed in the neurosurgical ICU . Patient accepted by [facility] for neurosurgery team. Status: Acute (2) Hypertensive crisis Assessment & Plan: 218/144 on admission On Nicardipine drip at this time Status: Acute (3) NSTEMI (non-ST elevated myocardial infarction) Assessment & Plan: Troponin: 0.1410-->0.1150 Echocardiogram (09/08/17): mild concentric left ventricular hypertropjhy. left ventricle systolic function is normal. EF: 65-70%. Transmital doppler flow pattern is grade I abnormal relaxation pattern. Status: Acute (4) Dementia Assessment & Plan: Step-munoz Progressive Status: Chronic (5) Abnormal finding on urinalysis Assessment & Plan: Urine culture: no growth Status: Acute (6) Prolonged Q-T interval on ECG Assessment & Plan: avoid QT prolongation agents Monitor K+ and Mg2+ Status: Acute (7) Hypernatremia Assessment & Plan: Was on hypertonic saline X1. 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 No acute fracture. Degenerative anterolisthesis of mid cervical spine. Fusion across C5-C6 level. Moderate to severe degenerative disc disease within mid and lower lower cervical spine. Status: Chronic (10) Chronic kidney disease Status: Chronic (11) Prophylactic measure Assessment & Plan: NS 100cc/hr Protonix 40mg IV q daily Aspiration precautions Seizure precautions Status: Acute
[2017-09-18 13:24] VITALS: BP 154/75; PULSE 88; RESP 23
--- NOTE | 2017-09-18 13:37 | CARD ---
APPROVED REPORT EKG Measurement Heart [id number] <Conclusion> Normal sinus rhythm Prolonged QT Abnormal ECG
== END 2017-09-18 13:20 | disposition short-term general hospital (02) | DRG 64 ==
LOC: C.ER 20:39 → C.9E 21:36 → C.9I 21:36
PROVIDERS: ADMIT Hospitalist; ATTEND Hospitalist
DX: I61.5 Nontraumatic intracerebral hemorrhage, intraventricular (principal); I21.4 Non-ST elevation (NSTEMI) myocardial infarction; G81.94 Hemiplegia, unspecified affecting left nondominant side; I16.9 Hypertensive crisis, unspecified; R47.01 Aphasia; G91.8 Other hydrocephalus; E87.0 Hyperosmolality and hypernatremia; E78.5 Hyperlipidemia, unspecified; F02.80 Dementia in other diseases classified elsewhere, unspecified severity, without behavioral disturbance, psychotic disturbance, mood disturbance, and anxiety; H40.9 Unspecified glaucoma; I25.10 Atherosclerotic heart disease of native coronary artery without angina pectoris; R29.810 Facial weakness; W19.XXXA Unspecified fall, initial encounter; M19.90 Unspecified osteoarthritis, unspecified site; I12.9 Hypertensive chronic kidney disease with stage 1 through stage 4 chronic kidney disease, or unspecified chronic kidney disease; N18.9 Chronic kidney disease, unspecified; I45.81 Long QT syndrome; F17.210 Nicotine dependence, cigarettes, uncomplicated; Y92.002 Bathroom of unspecified non-institutional (private) residence as the place of occurrence of the external cause; Z86.73 Personal history of transient ischemic attack (TIA), and cerebral infarction without residual deficits